=== PATIENT | male | born 1930 | race American Indian/Alaskan Native ===

== ENCOUNTER 2018-07-12 13:21 | Inpatient (IN) | payer MEDICARE ==
--- NOTE | 2018-07-12 13:33 | ED PDOC ---
Arrival/HPI - General Time Seen by Provider: 07/12/18 13:22 Historian: , EMS - Critical Care Critical Care Minutes: 45 minutes - History of Present Illness Narrative History of Present Illness (Text): 07/12/18 13:32 An 88 year old male, whose past medical history includes HTN, DM, pacemaker, kidney transplant (2008), is brought into the emergency department via EMS for further evaluation of right upper extremity weakness, facial weakness, and dilated pupil. Patient was seen immediately upon arrival. As per EMS, patient's sister tried to contact him via telephone, and he did not answer. They stated that the patient's sister went to see the patient at his house and he was not acting like himself. She states that the patient was last seen normal yesterday at around 4 PM after a pacemaker appointment at the [facility]. HPI/ROS limited due to acuity of patient's condition. Time/Duration: Prior to Arrival Symptom Onset: Sudden Symptom Course: Unchanged Activities at Onset: Rest, Light Context: Home Past Medical History - Provider Review Nursing Documentation Reviewed: Yes - Infectious Disease Hx of Infectious Diseases: None - Cardiac Hx Hypertension: Yes - Renal Hx Renal Failure: Yes (R KIDNEY TRANSPLANT) - Gastrointestinal Hx Diverticulitis: Yes - Psychiatric Hx Depression: No Hx Emotional Abuse: No Hx Physical Abuse: No Hx Substance Use: No - Anesthesia Hx Anesthesia: Yes Hx Anesthesia Reactions: No - Suicidal Assessment Feels Threatened In Home Enviroment: No Family/Social History - Physician Review Nursing Documentation Reviewed: Yes Family/Social History: No Known Family HX Smoking Status: Unknown If Ever Smoked Hx Alcohol Use: No Hx Substance Use: No Hx Substance Use Treatment: No Allergies/Home Meds Allergies/Adverse Reactions: Allergies No Known Allergies Allergy (Verified 09/16/15 14:27) Home Medications: Home Meds Medication Instructions Recorded Confirmed Allopurinol 100 mg PO DAILY 12/05/13 09/16/15 Amlodipine Besylate 5 mg PO DAILY 12/05/13 09/16/15 Aspirin [Aspirin Chewable] 81 mg PO DAILY 12/05/13 09/16/15 Gabapentin 400 mg PO BID 12/05/13 09/16/15 Insulin Human (NPH)/Regular 55 units SC BID 12/05/13 09/16/15 [Novolin 70/30 (70/30 units/ml) 10 ml] Latanoprost 0.005% Opht [Xalatan 1 drp OP HS 12/05/13 09/16/15 Opht] Levothyroxine Sodium 0.112 mg PO DAILY 12/05/13 09/16/15 Mycophenolate Sodium [Myfortic] 360 mg PO BID 12/05/13 09/16/15 Simvastatin 40 mg PO DAILY 12/05/13 09/16/15 Tacrolimus [Prograf] 4 mg PO BID 12/05/13 09/16/15 risperiDONE [RisperDAL Tab] 1 mg PO HS 12/05/13 09/16/15 Review of Systems - Physician Review All systems were reviewed & negative as marked: Yes - Review of Systems Systems not reviewed;Unavailable: Acuity of Condition Physical Exam Temperature: Afebrile Blood Pressure: Normal Pulse: Regular Respiratory Rate: Normal - Systems Exam Head: Present: Atraumatic, Normocephalic Pupils: Present: Other (R eye Fixed and dilated at 6mm. L eye PupilRound reactive to light.) Extroacular Muscles: Present: EOMI Conjunctiva: Present: Normal Mouth: Present: Moist Mucous Membranes Neck: Present: Normal Range of Motion. No: Meningeal Signs, MIDLINE TENDERNESS Respiratory/Chest: Present: Clear to Auscultation, Good Air Exchange Cardiovascular: Present: Regular Rate and Rhythm Abdomen: Present: Normal Bowel Sounds. No: Tenderness, Distention, Rebound Back: Present: Normal Inspection Upper Extremity: Present: NORMAL PULSES, Other (RUE 1/5 strength) Lower Extremity: Present: NORMAL PULSES, Other (LUE 4/5 strength) Neurological: Present: Other (GCS 10, protecting airway. Normal speech per family bedside. ) Skin: Present: Warm, Dry, Normal Color. No: Rashes Medical Decision Making ED Course and Treatment: Impression: An 88 year old is brought into the emergency department for further evaluation of right upper extremity and facial weakness, and dilated pupil. Last seen normal 1600 yesterday. Outside TPA window. Code stroke given unequal pupils, Dilated on R as well as RUE weakness. No signs of trauma. Plan: -- Head CT -- EKG -- Chest X-ray -- Labs -- Urinalysis -- IV Fluids -- Reassess and disposition Prior Visits: Notes and results from previous visits were reviewed. Progress Notes: 07/12/18 13:21: Code stroke called. 07/12/18 13:49: Received call from Dr. Rosas (Radiologist) stating Head CT is negative for hemorrhage or acutely visible ischemic stroke EKG: Ordered, reviewed, and independently interpreted the EKG. Rate : 77 Rhythm : V- paced Interpretation : No STEMI Comparison: Largely unchanged from EKG on 09/15/15 PROCEDURE: CT HEAD WITHOUT CONTRAST. Dictator : Twin Vergara MD Report Date : 07/12/2018 13:50:40 IMPRESSION: No evidence of acute infarct. No intracranial hemorrhage. Age- appropriate involutional changes. The findings in this examination were discussed by telephone with Dr. Deutsch at 1:49 p.m. on 07/12/2018. 07/12/18 14:06: Case discussed in detail with Dr. Jade who recommends CTA. 07/12/18 13:57: On re-evaluation, patient complains of abdominal pain and diffuse weakness for which A/P CT was ordered. Labs so far unremarkable. Chest X-ray Dictator : Twin Vergara MD Report Date : 07/12/2018 14:47:01 IMPRESSION: No active disease. 07/12/18 15:16 Pt was also noted to have improved RUE strength, 3/5 RUE. Notes that he routinely does not use his R eye due to previous injury in the . Notes it is always dilated. TIA likely given improvement pending swallow eval for TIA for plavix appreciate consult Dr. Woods: Endorsed pending CTA and CT abdomen. We are to admit to her service. Add on ETOH ordered. - Critical Care Critical Care Minutes: 45 minutes - Lab Interpretations I have reviewed the lab results: Yes - EKG Interpretation Interpreted by ED Physician: Yes Type: 12 lead EKG NIHSS Scale (Bronson) Time Performed: 14:09 - How Severe is the Stoke Baseline Level of Consciousness: 1=Drowsy LOC to Questions: 0=Both comments correct LOC to commands: 0=Obeys both correctly Best Gaze: 0=Normal Visual: 0=No visual loss Facial: 3=Complete unilateral paralysis Motor Arm - Left: 1=Drift noted before 10 sec Motor Arm - Right: 2=Falls before 10 sec Motor Leg - Left: 2=Falls before 5 sec Motor Leg - Right: 2=Falls before 5 sec Limb Ataxia: 0=Absent Sensory: 0=Normal Best Language: 0=No aphasia Dysarthia: 0=Normal articulation Extinction & Inattention (Neglect): 0=Normal, no object Score: 11 Risk Level: Mod Stroke Risk - Scribe Statement The provider has reviewed the documentation as recorded by the Scribe Minnie Blanca Provider Scribe Attestation: All medical record entries made by the Scribe were at my direction and personally dictated by me. I have reviewed the chart and agree that the record accurately reflects my personal performance of the history, physical exam, me dical decision making, and the department course for this patient. I have also personally directed, reviewed, and agree with the discharge instructions and disposition. Disposition/Present on Arrival - Present on Arrival Any Indicators Present on Arrival: No History of DVT/PE: No History of Uncontrolled Diabetes: No Urinary Catheter: No History Surgical Site Infection Following: None - Disposition Have Diagnosis and Disposition been Completed?: Yes Diagnosis: TIA (transient ischemic attack) Disposition Time: 15:20 Condition: FAIR Referrals: Yue Aldrich, [Primary Care Provider] - Follow up with primary
[2018-07-12] MEDS ORDERED: Sodium Chloride 0.9% 1,000 ML IV SCH (13:45)
[2018-07-12 13:49] VITALS: BMI 30.9
--- NOTE | 2018-07-12 13:54 | CT ---
Date of service: 07/12/2018 PROCEDURE: CT HEAD WITHOUT CONTRAST. HISTORY: Code Stroke COMPARISON: None available. TECHNIQUE: Axial computed tomography images were obtained through the head/brain without intravenous contrast. Radiation dose: Total exam DLP = 985.86 mGy-cm. This CT exam was performed using one or more of the following dose reduction techniques: Automated exposure control, adjustment of the mA and/or kV according to patient size, and/or use of iterative reconstruction technique. FINDINGS: HEMORRHAGE: No intracranial hemorrhage. BRAIN: No mass effect or edema. Mild diffuse age-appropriate cerebral atrophy. Moderate patchy and confluent periventricular and deep/subcortical white matter lucency consistent with microvascular white matter ischemic change. VENTRICLES: Unremarkable. No hydrocephalus. CALVARIUM: Unremarkable. PARANASAL SINUSES: Unremarkable as visualized. No significant inflammatory changes. MASTOID AIR CELLS: Unremarkable as visualized. No inflammatory changes. OTHER FINDINGS: None. IMPRESSION: No evidence of acute infarct. No intracranial hemorrhage. Age-appropriate involutional changes. The findings in this examination were discussed by telephone with Dr. Deutsch at 1:49 p.m. on 07/12/2018.
[2018-07-12 13:56] LABS: BASO # 0.01 K/mm3 (0.0-2.0); BASO % 0.1 % (0.0-3.0); EOS # 0.1 (0.0-0.7); EOS % 0.8 % (1.5-5.0); GRAN # 6.42 (1.4-6.5); GRAN % 71.1 % (50.0-68.0); HEMOGLOBIN 15.5 g/dL (14.0-18.0); LYMPH # 2.2 (1.2-3.4); LYMPH % 23.9 % (22.0-35.0); MEAN CELL VOLUME 85.2 fl (80.0-105.0); MEAN CORPUSCULAR HEMOGLOBIN 28.6 pg (25.0-35.0); MEAN CORPUSCULAR HGB CONC 33.5 g/dl (31.0-37.0); MEAN PLATELET VOLUME 11.2 fl (7.0-11.0); MONO # 0.4 (0.1-0.6); MONO % 4.1 % (1.0-6.0); RBC 5.42 10^6/uL (3.5-6.1); RED CELL DISTRIBUTION WIDTH 14.8 % (11.5-14.5)
[2018-07-12 13:59] LABS: ALB/GLOB RATIO 1.3 (1.1-1.8); ALBUMIN 4.6 g/dL (3.0-4.8); ALT/SGPT 348 U/L (7-56); AST/SGOT 217 U/L (17-59); BLOOD UREA NITROGEN 18 mg/dL (7-21); CALCIUM 10.7 mg/dL (8.4-10.5); GFR NON-AFRICAN AMERICAN > 60; HDL CHOLESTEROL 30 mg/dL (29-60)
[2018-07-12 14:00] LABS: INR 0.96
[2018-07-12 14:10] LABS: LDL CHOLESTEROL 80 mg/dL (0-129); TROPONIN I 0.03 ng/mL
[2018-07-12 14:32] LABS: B-TYPE NATRIURETIC PEPTIDE 442 pg/mL (0-450)
--- NOTE | 2018-07-12 14:50 | RAD ---
Date of service: 07/12/2018 HISTORY: Code Stroke COMPARISON: 09/15/2015 FINDINGS: LUNGS: No active pulmonary disease. PLEURA: No significant pleural effusion identified, no pneumothorax apparent. CARDIOVASCULAR: Normal heart size. Permanent pacemaker. Spinal stimulator noted. OSSEOUS STRUCTURES: No significant abnormalities. VISUALIZED UPPER ABDOMEN: Normal. OTHER FINDINGS: None. IMPRESSION: No active disease.
[2018-07-12 15:51] LABS: ARTERIAL BLOOD GAS HCO3 22.3 mmol/L (21-28); ARTERIAL BLOOD GAS O2 SAT 98.1 % (95-98); ARTERIAL BLOOD GAS PCO2 36 mm/Hg (35-45); ARTERIAL BLOOD GAS TCO2 23.4 mmol.L (22-28)
--- NOTE | 2018-07-12 18:02 | CT ---
Date of service: 07/12/2018 PROCEDURE: CT Abdomen and Pelvis without intravenous contrast HISTORY: abd pain COMPARISON: None. TECHNIQUE: Without contrast.. Contrast dose: 0 Radiation dose: Total exam DLP = 1448.49 mGy-cm. This CT exam was performed using one or more of the following dose reduction techniques: Automated exposure control, adjustment of the mA and/or kV according to patient size, and/or use of iterative reconstruction technique. FINDINGS: LOWER THORAX: Left lower lobe infiltrate. Possible pneumonia. Cardiomegaly. Permanent pacemaker. Spinal stimulator. LIVER: Unremarkable. No gross lesion or ductal dilatation. GALLBLADDER AND BILE DUCTS: Cholelithiasis. No mural thickening or pericholecystic fluid. PANCREAS: Unremarkable. No gross lesion or ductal dilatation. SPLEEN: Unremarkable. ADRENALS: Unremarkable. No mass. KIDNEYS AND URETERS: Severely atrophic [place] kidneys. Multiple small low-density masses in left kidney likely cysts. Transplant kidney in right iliac fossa. No mass, calculus or hydronephrosis. VASCULATURE: Unremarkable. No aortic aneurysm. BOWEL: Unremarkable. No obstruction. No gross mural thickening. APPENDIX: Not identified. No secondary findings to suggest acute appendicitis. PERITONEUM: Unremarkable. No free fluid. No free air. LYMPH NODES: Unremarkable. No enlarged lymph nodes. BLADDER: Unremarkable. REPRODUCTIVE: Mild prostate enlargement BONES: No acute fracture. OTHER FINDINGS: None. IMPRESSION: Atrophic kidneys with right iliac fossa renal transplant. Left lower lobe infiltrate, possible pneumonia. Cholelithiasis without evidence of cholecystitis. Additional minor findings as above.
[2018-07-12 18:28] LABS: BENZODIAZEPINES, UR NEGATIVE (NEGATIVE); OPIATES, UR NEGATIVE (NEGATIVE)
[2018-07-12 18:29] LABS: BARBITURATES, UR NEGATIVE (NEGATIVE)
[2018-07-12 18:46] LABS: PHENCYCLIDINE, UR NEGATIVE (NEGATIVE)
[2018-07-12] MEDS: Dextrose 5%/0.45% NS 1,000 ML IV SCH (19:01)
[2018-07-12] MEDS: Levalbuterol 0.63 MG/3 ML Inhal Soln UD IH SCH (20:14)
[2018-07-12] MEDS ORDERED: Pneumococcal 23-Valent Vaccine IM ONE (20:28)
[2018-07-12] MEDS ORDERED: Influenza Vaccine 60 mcg/0.5 mL SYR (4YR UP) IM ONE (20:28)
[2018-07-12] MEDS: Nitroglycerin 2% Ointment Foilpak UD TOP SCH (23:57)
[2018-07-13] MEDS: Dextrose 5%/0.45% NS 1,000 ML IV SCH ×3 (03:30→20:45)
[2018-07-13] MEDS: Metoprolol 1 mg/ml Inj IVP PRN ×2 (05:59)
[2018-07-13] MEDS: Nitroglycerin 2% Ointment Foilpak UD TOP SCH ×4 (06:05→23:21)
[2018-07-13 06:52] LABS: HEMOGLOBIN 14.2 g/dL (14.0-18.0); MEAN CELL VOLUME 84.5 fl (80.0-105.0); MEAN CORPUSCULAR HEMOGLOBIN 27.5 pg (25.0-35.0); MEAN CORPUSCULAR HGB CONC 32.6 g/dl (31.0-37.0); MEAN PLATELET VOLUME 11.3 fl (7.0-11.0); RBC 5.16 10^6/uL (3.5-6.1); RED CELL DISTRIBUTION WIDTH 14.7 % (11.5-14.5); WHITE BLOOD COUNT 8.9 10^3/ul (4.5-11.0)
[2018-07-13 07:40] LABS: ALB/GLOB RATIO 1.3 (1.1-1.8); ALBUMIN 3.7 g/dL (3.0-4.8); ALT/SGPT 266 U/L (7-56); AST/SGOT 120 U/L (17-59); BLOOD UREA NITROGEN 12 mg/dL (7-21); CALCIUM 10.2 mg/dL (8.4-10.5); GFR NON-AFRICAN AMERICAN > 60
[2018-07-13] MEDS: Levalbuterol 0.63 MG/3 ML Inhal Soln UD IH SCH ×3 (08:30→19:45)
[2018-07-13] MEDS: Insulin Lispro (humaLOG) MEDIUM Coverage SC SCH ×3 (09:58→19:33)
[2018-07-13] MEDS: cefTRIAXone 1 gm 1 GM/100 ML BAG IVPB SCH (11:13)
--- NOTE | 2018-07-13 12:39 | CP.PCM.CON ---
History of Present Illness - History of Present Illness History of Present Illness: Neurology Consultation Note: Mr. Zazueta is an 88-year-old man with a past medical history of HTN, DM, pacemaker, kidney transplant (2008), who was brought in to the ED after his sister found him with abnormal behavior, slurred speech, right facial droop and right arm weakness. He was last known well the day before he was brought in. He was not a candidate for IV tPA due to being outside the 4.5 hour time window. Non-contrast CT scan of the head did not show any acute findings. CTA of the head/neck did not show any focal stenosis or large vessel occlusion. When I saw the patient, he was pleasant and conversant, but complained of generalized weakness and pain in his cervical region and lower back. He admitted to having a foot drop on the left and states that he has trouble with moving his upper extremities chronically. Review of Systems - Constitutional Constitutional: absent: As Per HPI, Anorexia, Chills, Daytime Sleepiness, Excessive Sweating, Fatigue, Fever, Frequent Falls, Headache, Increased Appetite, Lethargy, Malaise, Night Sweats, Snoring, Sleep Apnea, Weight Gain, Weight Loss, Weakness, Other - EENT Eyes: absent: As Per HPI, Blind Spots, Blurred Vision, Change in Vision, Decreased Night Vision, Diplopia, Discharge, Dry Eye, Exophthalmos, Floaters, Irritation, Itchy Eyes, Loss of Peripheral Vision, Pain, Photophobia, Requires Corrective Lenses, Sees Flashes, Spots in Vision, Tunnel Vision, Other Visual Disturbances, Loss of Vision, Other Ears: absent: As Per HPI, Decreased Hearing, Ear Discharge, Ear Pain, Tinnitus, Abnormal Hearing, Disequilibrium, Dizziness, Other Nose/Mouth/Throat: absent: As Per HPI, Epistaxis, Nasal Congestion, Nasal Discharge, Nasal Obstruction, Nasal Trauma, Nose Pain, Post Nasal Drip, Sinus Pain, Sinus Pressure, Bleeding Gums, Change in Voice, Dental Pain, Dry Mouth, Dysphagia, Halitosis, Hoarsness, Lip Swelling, Mouth Lesions, Mouth Pain, Odynophagia, Sore Throat, Throat Swelling, Tongue Swelling, Facial Pain, Neck Pain, Neck Mass, Other - Cardiovascular Cardiovascular: absent: As Per HPI, Acrocyanosis, Chest Pain, Chest Pain at Rest, Chest Pain with Activity, Claudication, Diaphoresis, Dyspnea, Dyspnea on Exertion, Edema, Irregular Heart Rhythm, Pain Radiating to Arm/Neck/Jaw, Leg Edema, Leg Ulcers, Lightheadedness, Orthopnea, Palpitations, Paroxysmal Noctu rnal Dyspnea, Pedal Edema, Radiating Pain, Rapid Heart Rate, Slow Heart Rate, Syncope, Other - Respiratory Respiratory: absent: As Per HPI, Cough, Dyspnea, Hemoptysis, Dyspnea on Exertion, Wheezing, Snoring, Stridor, Pain on Inspiration, Chest Congestion, Excessive Mucous Production, Change in Mucous Color, Pain with Coughing, Other - Gastrointestinal Gastrointestinal: absent: As Per HPI, Abdominal Pain, Belching, Bloating, Change in Bowel Habits, Change in Stool Character, Coffee Ground Emesis, Constipation, Cramping, Diarrhea, Dyspepsia, Dysphagia, Early Satiety, Excessive Flatus, Fecal Incontinence, Heartburn, Hematemesis, Hematochezia, Loose Stools, Melena, Nausea, Odynophagia, Temesmus, Vomiting, Other - Genitourinary Genitourinary: absent: As Per HPI, Change in Urinary Stream, Difficulty Urinating, Dysuria, Flank Pain, Hematuria, Pyuria, Nocturia, Urinary Incontine nce, Urinary Frequency, Urinary Hesitance, Urinary Urgency, Voiding Freq/Small Amts, Freq UTI, Hx Renal/Bladder Calculi, Hx /Renal Surgery, Bladder Distension, Other - Musculoskeletal Musculoskeletal: As Per HPI - Integumentary Integumentary: absent: As Per HPI, Acne, Alopecia, Bleeding Lesions, Change in Hair, Change in Nails, Change in Pigmentation, Changing Lesions, Dry Skin, Erythema, Furuncle, Hirsutism, Lesions, New Lesions, Non-Healing Lesions, Photosensitivity, Pruritus, Rash, Skin Pain, Skin Ulcer, Sores, Striae, Swelling, Unusual Bruising, Wounds, Jaundice, Other - Neurological Neurological: As Per HPI - Psychiatric Psychiatric: absent: As Per HPI, Abnormal Sleep Pattern, Anhedonia, Anxiety, Auditory Hallucinations, Behavioral Changes, Change in Appetite, Change in Libido, Confusion, Depression, Difficulty Concentrating, Hallucinations, Homicidal Ideation, Hopelessness, Irritability, Memory Loss, Mood Swings, Panic Attacks, Paranoia, Suicidal Ideation, Visual Hallucinations, Tactile Hallucinations, Other - Endocrine Endocrine: absent: As Per HPI, Change in Body Appearance, Change in Libido, Cold Intolorance, Deepening of Voice, Excessive Sweating, Fatigue, Flushing, Heat Int olorance, Increase in Ring/Shoe/Hat Size, Palpitations, Polydipsia, Polyphagia, Polyuria, Other - Hematologic/Lymphatic Hematologic: absent: As Per HPI, Easy Bleeding, Easy Bruising, Lymphadenopathy, Other Past Patient History - Infectious Disease Hx of Infectious Diseases: None - Past Social History Smoking Status: Former Smoker - CARDIAC Hx Cardiac Disorders: Yes Hx Hypercholesterolemia: Yes Hx Hypertension: Yes - PULMONARY Hx Respiratory Disorders: Yes (USED TO SMOKE 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 PER PT HAD INJURY IN THE [employer].) - RENAL Hx Chronic Kidney Disease: Yes Hx Renal Failure: Yes (R KIDNEY TRANSPLANT) - ENDOCRINE/METABOLIC Hx Endocrine Disorders: No - HEMATOLOGICAL/ONCOLOGICAL Hx Blood Disorders: No - INTEGUMENTARY Hx Dermatological Problems: Yes Other/Comment: 07-12-18 SCARRING TO MID LOWER BACK,MID LOWER ABDOMINAL AREA,RIGHT BIG TOE AND 2ND TOE PARTIAL AMPUTATION. - MUSCULOSKELETAL/RHEUMATOLOGICAL Hx Musculoskeletal Disorders: Yes Hx Falls: Yes Hx Unsteady Gait: Yes - GASTROINTESTINAL Hx Gastrointestinal Disorders: Yes Hx Diverticulitis: Yes - GENITOURINARY/GYNECOLOGICAL Hx Genitourinary Disorders: No - PSYCHIATRIC Hx Psychophysiologic Disorder: No Hx Depression: No Hx Emotional Abuse: No Hx Physical Abuse: No Hx Substance Use: No - SURGICAL HISTORY Hx Surgeries: Yes (EXPLORATORY LAP,KIDNEY TRANSPLANT RIGHT,) Hx Appendectomy: Yes Other/Comment: pacemaker - ANESTHESIA Hx Anesthesia: Yes Hx Anesthesia Reactions: No Meds Allergies/Adverse Reactions: Allergies Allergy/AdvReac Type Severity Reaction Status Date / Time No Known Allergies Allergy Verified 07/12/18 17:17 - Medications Medications: Current Medications Dextrose/Sodium Chloride (Dextrose 5%/0.45% Ns 1000 Ml) 1,000 mls @ 80 mls/hr IV .[id number] [facility] Last Admin: 07/13/18 03:30 Dose: 80 mls/hr Ceftriaxone Sodium (Rocephin 1 Gram Ivpb) 1 gm in 100 mls @ 100 mls/hr IVPB DAILY [facility]; Protocol Last Admin: 07/13/18 11:13 Dose: 100 mls/hr Insulin Human Lispro (Humalog Med) 0 units SC WM [facility]MA; Protocol Last Admin: 07/13/18 12:35 Dose: Not Given Levalbuterol HCl (Xopenex) 0.63 mg IH TIDRESP [facility] Last Admin: 07/13/18 08:30 Dose: Not Given Metoprolol Tartrate (Lopressor) 5 mg IVP Q6 PRN PRN Reason: Systolic Blood Pressure Last Admin: 07/13/18 05:59 Dose: 5 mg Nitroglycerin (Nitro-Bid 2% Oint) 1 ea TOP Q6 [facility] Last Admin: 07/13/18 11:14 Dose: 1 ea Physical Exam - Constitutional Appears: Chronically Ill - Head Exam Head Exam: ATRAUMATIC, NORMAL INSPECTION, NORMOCEPHALIC - Eye Exam Eye Exam: EOMI, Normal appearance, PERRL Additional comments: Right eye has previous injury and does not move properly and does not have vision in it. - ENT Exam ENT Exam: Mucous Membranes Moist, Normal Exam - Neck Exam Neck exam: Positive for: Tenderness - Respiratory Exam Respiratory Exam: Clear to Auscultation Bilateral, NORMAL BREATHING PATTERN - Cardiovascular Exam Cardiovascular Exam: REGULAR RHYTHM, +S1, +S2 - GI/Abdominal Exam GI & Abdominal Exam: Normal Bowel Sounds, Soft. absent: Tenderness - Rectal Exam Rectal Exam: Deferred - Extremities Exam Extremities exam: Positive for: joint swelling, pedal edema, tenderness - Back Exam Back exam: paraspinal tenderness - Neurological Exam Neurological exam: Abnormal Gait, Alert, CN II-XII Intact, Oriented x3 Additional comments: Generalized weakness. Speech is fluent and not dysarthric. Limited mobility of right upper extremity due to pain. Chronic left foot drop. Pain limiting movements. Reflexes are normal. Plantar responses are equivocal. NIHSS = 4 Results - Vital Signs Recent Vital Signs: Last Vital Signs Temp 97.8 F 07/13/18 06:00 Pulse 77 07/13/18 06:00 Resp 20 07/13/18 06:00 BP 171/95 H 07/13/18 06:00 Pulse Ox 97 07/13/18 06:00 - Labs Result Diagrams: 07/13/18 06:00 07/13/18 06:00 Labs: Laboratory Results - last 24 hr 10/07/12/18 07/12/18 13:27 13:27 13:27 WBC 9.0 D RBC 5.42 Hgb 15.5 Hct 46.2 MCV 85.2 MCH 28.6 MCHC 33.5 RDW 14.8 H Plt Count 148 MPV 11.2 H Gran % 71.1 H Lymph % (Auto) 23.9 Irion % (Auto) 4.1 Eos % (Auto) 0.8 L Baso % (Auto) 0.1 Gran # 6.42 Lymph # (Auto) 2.2 Irion # (Auto) 0.4 Eos # (Auto) 0.1 Baso # (Auto) 0.01 PT 11.0 INR 0.96 APTT 31.0 pCO2 pO2 HCO3 ABG pH ABG Total CO2 ABG O2 Saturation ABG Base Excess ABG Potassium Glucose Lactate FiO2 Sodium 139 Potassium 4.7 Chloride 103 Carbon Dioxide 27 Anion Gap 14 BUN 18 Creatinine 0.7 L Est GFR ( Amer) > 60 Est GFR (Non-Af Amer) > 60 POC Glucose (mg/dL) Random Glucose 145 H Hemoglobin A1c Calcium 10.7 H Total Bilirubin 0.5 AST 217 H ALT 348 H Alkaline Phosphatase 118 Total Creatine Kinase Troponin I 0.03 NT-Pro-B Natriuret Pep Total Protein 8.2 Albumin 4.6 Globulin 3.5 Albumin/Globulin Ratio 1.3 Triglycerides 170 H Cholesterol 158 LDL Cholesterol Direct 80 HDL Cholesterol 30 Lipase TSH 3rd Generation Arterial Blood Potassium Urine Opiates Screen Urine Methadone Screen Ur Barbiturates Screen Ur Phencyclidine Scrn Ur Amphetamines Screen U Benzodiazepines Scrn U Oth Cocaine Metabols U Cannabinoids Screen Alcohol, Quantitative Blood Type Blood Type Confirm Antibody Screen Antibody Identification BBK History Checked 07/12/18 07/12/18 07/12/18 13:27 13:27 13:37 WBC RBC Hgb Hct MCV MCH MCHC RDW Plt Count MPV Gran % Lymph % (Auto) Irion % (Auto) Eos % (Auto) Baso % (Auto) Gran # Lymph # (Auto) Irion # (Auto) Eos # (Auto) Baso # (Auto) PT INR APTT pCO2 pO2 HCO3 ABG pH ABG Total CO2 ABG O2 Saturation ABG Base Excess ABG Potassium Glucose Lactate FiO2 Sodium Potassium Chloride Carbon Dioxide Anion Gap BUN Creatinine Est GFR ( Amer) Est GFR (Non-Af Amer) POC Glucose (mg/dL) Random Glucose Hemoglobin A1c 7.7 H Calcium Total Bilirubin AST ALT Alkaline Phosphatase Total Creatine Kinase 154 Troponin I NT-Pro-B Natriuret Pep 442 Total Protein Albumin Globulin Albumin/Globulin Ratio Triglycerides Cholesterol LDL Cholesterol Direct HDL Cholesterol Lipase TSH 3rd Generation 0.31 L Arterial Blood Potassium Urine Opiates Screen Urine Methadone Screen Ur Barbiturates Screen Ur Phencyclidine Scrn Ur Amphetamines Screen U Benzodiazepines Scrn U Oth Cocaine Metabols U Cannabinoids Screen Alcohol, Quantitative Blood Type Blood Type Confirm Antibody Screen Antibody Identification BBK History Checked 07/12/18 07/12/18 07/12/18 14:00 15:47 17:00 WBC RBC Hgb Hct MCV MCH MCHC RDW Plt Count MPV Gran % Lymph % (Auto) Irion % (Auto) Eos % (Auto) Baso % (Auto) Gran # Lymph # (Auto) Irion # (Auto) Eos # (Auto) Baso # (Auto) PT INR APTT pCO2 36 pO2 82.0 HCO3 22.3 ABG pH 7.40 ABG Total CO2 23.4 ABG O2 Saturation 98.1 H ABG Base Excess -2.0 ABG Potassium 4.0 Glucose 107 Lactate 1.0 FiO2 21.0 Sodium 137.0 Potassium Chloride 109.0 H Carbon Dioxide Anion Gap BUN Creatinine Est GFR ( Amer) Est GFR (Non-Af Amer) POC Glucose (mg/dL) Random Glucose Hemoglobin A1c Calcium Total Bilirubin AST ALT Alkaline Phosphatase Total Creatine Kinase Troponin I NT-Pro-B Natriuret Pep Total Protein Albumin Globulin Albumin/Globulin Ratio Triglycerides Cholesterol LDL Cholesterol Direct HDL Cholesterol Lipase 82 TSH 3rd Generation Arterial Blood Potassium 4.0 Urine Opiates Screen Urine Methadone Screen Ur Barbiturates Screen Ur Phencyclidine Scrn Ur Amphetamines Screen U Benzodiazepines Scrn U Oth Cocaine Metabols U Cannabinoids Screen Alcohol, Quantitative Blood Type B NEGATIVE Blood Type Confirm Antibody Screen Positive Antibody Identification Anti D BBK History Checked No verified bt 07/12/18 07/12/18 07/12/18 17:00 17:00 17:10 WBC RBC Hgb Hct MCV MCH MCHC RDW Plt Count MPV Gran % Lymph % (Auto) Irion % (Auto) Eos % (Auto) Baso % (Auto) Gran # Lymph # (Auto) Irion # (Auto) Eos # (Auto) Baso # (Auto) PT INR APTT pCO2 pO2 HCO3 ABG pH ABG Total CO2 ABG O2 Saturation ABG Base Excess ABG Potassium Glucose Lactate FiO2 Sodium Potassium Chloride Carbon Dioxide Anion Gap BUN Creatinine Est GFR ( Amer) Est GFR (Non-Af Amer) POC Glucose (mg/dL) Random Glucose Hemoglobin A1c Calcium Total Bilirubin AST ALT Alkaline Phosphatase Total Creatine Kinase Troponin I NT-Pro-B Natriuret Pep Total Protein Albumin Globulin Albumin/Globulin Ratio Triglycerides Cholesterol LDL Cholesterol Direct HDL Cholesterol Lipase TSH 3rd Generation Arterial Blood Potassium Urine Opiates Screen Negative Urine Methadone Screen Negative Ur Barbiturates Screen Negative Ur Phencyclidine Scrn Negative Ur Amphetamines Screen Negative U Benzodiazepines Scrn Negative U Oth Cocaine Metabols Negative U Cannabinoids Screen Negative Alcohol, Quantitative < 10 Blood Type Blood Type Confirm B NEGATIVE Antibody Screen Antibody Identification BBK History Checked 07/12/18 07/13/18 07/13/18 21:06 06:00 06:00 WBC 8.9 RBC 5.16 Hgb 14.2 Hct 43.6 MCV 84.5 MCH 27.5 MCHC 32.6 RDW 14.7 H Plt Count 148 MPV 11.3 H Gran % Lymph % (Auto) Irion % (Auto) Eos % (Auto) Baso % (Auto) Gran # Lymph # (Auto) Irion # (Auto) Eos # (Auto) Baso # (Auto) PT INR APTT pCO2 pO2 HCO3 ABG pH ABG Total CO2 ABG O2 Saturation ABG Base Excess ABG Potassium Glucose Lactate FiO2 Sodium 138 Potassium 4.7 Chloride 108 H Carbon Dioxide 22 Anion Gap 13 BUN 12 Creatinine 0.7 L Est GFR ( Amer) > 60 Est GFR (Non-Af Amer) > 60 POC Glucose (mg/dL) 128 H Random Glucose 147 H Hemoglobin A1c Calcium 10.2 Total Bilirubin 0.7 AST 120 H D ALT 266 H Alkaline Phosphatase 121 Total Creatine Kinase Troponin I NT-Pro-B Natriuret Pep Total Protein 6.5 Albumin 3.7 Globulin 2.8 Albumin/Globulin Ratio 1.3 Triglycerides Cholesterol LDL Cholesterol Direct HDL Cholesterol Lipase TSH 3rd Generation Arterial Blood Potassium Urine Opiates Screen Urine Methadone Screen Ur Barbiturates Screen Ur Phencyclidine Scrn Ur Amphetamines Screen U Benzodiazepines Scrn U Oth Cocaine Metabols U Cannabinoids Screen Alcohol, Quantitative Blood Type Blood Type Confirm Antibody Screen Antibody Identification BBK History Checked 07/13/18 07:13 WBC RBC Hgb Hct MCV MCH MCHC RDW Plt Count MPV Gran % Lymph % (Auto) Irion % (Auto) Eos % (Auto) Baso % (Auto) Gran # Lymph # (Auto) Irion # (Auto) Eos # (Auto) Baso # (Auto) PT INR APTT pCO2 pO2 HCO3 ABG pH ABG Total CO2 ABG O2 Saturation ABG Base Excess ABG Potassium Glucose Lactate FiO2 Sodium Potassium Chloride Carbon Dioxide Anion Gap BUN Creatinine Est GFR ( Amer) Est GFR (Non-Af Amer) POC Glucose (mg/dL) 151 H Random Glucose Hemoglobin A1c Calcium Total Bilirubin AST ALT Alkaline Phosphatase Total Creatine Kinase Troponin I NT-Pro-B Natriuret Pep Total Protein Albumin Globulin Albumin/Globulin Ratio Triglycerides Cholesterol LDL Cholesterol Direct HDL Cholesterol Lipase TSH 3rd Generation Arterial Blood Potassium Urine Opiates Screen Urine Methadone Screen Ur Barbiturates Screen Ur Phencyclidine Scrn Ur Amphetamines Screen U Benzodiazepines Scrn U Oth Cocaine Metabols U Cannabinoids Screen Alcohol, Quantitative Blood Type Blood Type Confirm Antibody Screen Antibody Identification BBK History Checked Assessment & Plan (1) TIA (transient ischemic attack) Assessment and Plan: Currently, the patient is at his baseline. He has chronic pain and some limitations of movement due to radiculopathy and spinal disease. I recommend the following for work up: 1. Telemetry 2. MRI brain without contrast if possible (pacemaker may not be compatible) 3. Echocardiogram with bubble study 4. EEG awake and drowsy for 30 minutes. 5. Check hemoglobin A-1 C, lipid panel, ESR, CRP, B12, folate, TSH, vitamin D levels, urinalysis and infectious work-up. 6. Aspirin 81 mg daily 7. Q 4 hour neuro-checks. 8. Normalize BP 9. IV fluids normal saline at 100 mL per hour. Please do not hesitate to call back with any new developments, data updates or questions. Thank you for the opportunity to participate in the care of this patient. Status: Acute
--- NOTE | 2018-07-13 15:28 | CARD ---
APPROVED REPORT Date of service: 07/12/2018 EKG Measurement Heart [id number] [place] 302P [id number] <Conclusion> AV sequential or dual chamber electronic pacemaker
--- NOTE | 2018-07-13 22:37 | HP ---
DATE OF EXAM: 07/12/2018 HISTORY OF PRESENT ILLNESS: This 88-year-old male was examined in the [facility] ER, bed #8 on the afternoon of Saturday,07/12/2018 and this case was reviewed in detail with emergency room physician, Dr. Tay Deutsch. This is a 88-year-old male who was brought to the [facility] via EMS support. He has a longstanding history of chronic hypertension, diabetes mellitus, chronic permanent pacemaker placement and is status post a kidney transplant in 2008. He was sent to Emergency Room by family for further evaluation of upper extremity weakness, facial weakness, and change in mental status. Upon arrival to the Emergency Room, the patient underwent a significant diagnostic workup including chest x-ray, EKG, head CT, and abdominopelvic CT. All of these were reviewed with Dr. Deutsch and his clinical presentation appears consistent with a possible transient ischemic attack, since there were no changes on head CT consistent with infarct or hemorrhage. When I examined the patient at the bedside, he was responsive to questioning but appeared slow in his responses and had a garbled speech. On review of his medical record, he has a longstanding history of kidney transplant in 2008, hyperlipidemia, hypothyroidism, glaucoma, psychosis, allergic rhinitis, and gout. OUTPATIENT MEDICATION: List was reviewed and includes Risperdal, Ultram, Prograf, simvastatin, Myfortic, Synthroid, Xalatan glaucoma eyedrops, Novolin 70/30,gabapentin, Flonase, Tessalon Perles, Zithromax, Ecotrin, benazepril, and Zyloprim. ALLERGIES: THE PATIENT DENIES ANY ALLERGIES TO MEDICATION. SOCIAL HISTORY: He states he is a nondrinker, nonsmoker, non IV drug misuser. PAST SURGICAL HISTORY: He states he has had surgery on his spine for herniated disks, knee surgery, appendectomy, kidney transplant surgery, and apparently has a spinal stimulator as noted on x-ray. REVIEW OF SYSTEMS: CONSTITUTIONAL: He denied fever or chills. HEAD: Denied headache or seizure. EYES: Has chronic glaucoma. EARS: No hearing loss. THROAT: Apparently has swallowing difficulty at present. NECK: No stiffness. CARDIAC: Chronic hypertension. He denied knowledge of myocardial infarction. PULMONARY: Chronic obstructive pulmonary disease. GASTROINTESTINAL: Gastroesophageal reflux disease. GENITOURINARY: Status post kidney transplant. VASCULAR: No claudication. PSYCHOLOGIC: Apparent psychosis. NEUROLOGIC: Denied knowledge of stroke. ENDOCRINOLOGIC: Insulin-dependent diabetes mellitus and hyperlipidemia. MUSCULOSKELETAL: Chronic degenerative and spinal arthritis. PHYSICAL EXAMINATION: VITAL SIGNS: At the time of my interview, showed a temperature of 98.6, respirations 18, pulse 75, and blood pressure 148/84 with a pulse ox of 97% room air. HEENT: Head was normocephalic, atraumatic. Eyes: No icterus. Ears: Clear. Throat: Noninjected. NECK: Supple. HEART: Regular S1, S2. LUNGS: Clear. ABDOMEN: Soft. EXTREMITIES: No edema. SKIN: Without rash. NEUROLOGIC: He had a muffled speech pattern. He had decreased motor strength, 3/5, both right upper and left upper extremities. VASCULAR: Legs warm to touch. PSYCHOLOGIC: Able to answer questions. SKIN: Without rash. Code stroke was called in the Emergency Room. Workup was consistent with TIA. He had a swallowing evaluation. He was advised no solid foods at present. LABORATORY DATA: Showed white count 9000, hemoglobin 15.5, hematocrit 46.2, platelets 148,000. PT/INR 0.96, PTT 31. Sodium 139, K 4.7, chloride 103, bicarb 27, BUN 18, creatinine 0.7, random blood sugar 145, calcium 10.7. Bilirubin 0.5, AST 217, ALT 348, alk phos 118. CPK normal at 154. Troponin 0.03. Cholesterol 158, triglycerides 170, LDL 80, and HDL 30. TSH 0.31, lipase 82. Drug screen negative. Alcohol level less than 10. Chest x-ray was reviewed. It showed no active disease. No significant pleural effusion was noted. There was no pneumothorax. A permanent pacemaker was noted. Spinal stimulator was noted. Head CT was reviewed. No intracranial hemorrhage was identified. There was no mass effect or edema. Mild diffuse age appropriate cerebral atrophy was noted, moderate patchy and confluent periventricular and deep subcortical white matter lucencies were noted consistent with white matter ischemic changes. His ventricle showed no hydrocephalous and there was no evidence of an acute infarct. No intracranial hemorrhage and this was interpreted by Dr. Twin Juarez from Radiology. An abdominopelvic CT was reviewed. This was completed with no p.o. or IV contrast. Of note, a left lower lobe infiltrate with possible pneumonia findings were noted as well as his permanent pacemaker placement and spinal stimulator. His liver was unremarkable with no gross lesion or ductal dilatation and the gallbladder was consistent with cholelithiasis with no mural thickening or pericholecystic fluid. Pancreas was unremarkable. Adrenal showed no mass. His [place] kidney showed severe atrophy with a left kidney cyst and his transplant kidney was noted to be in the right iliac fossa. There was no evidence of calculus or hydronephrosis. Mild prostatic enlargement was noted. IMPRESSION AND PLAN: An 88-year-old male with change in mental status, rule out transient ischemic attack, status post kidney transplant in 2008, now with possible left lower lobe pneumonia, chronic hypertension, hypothyroidism, glaucoma, insulin-dependent diabetes mellitus, peripheral neuropathy, sinusitis, degenerative arthritis, history of gout and elevated liver function testing of unclear etiology. Since the patient has not passed his swallowing examination, the plan will be to give him D5 0.45 saline at 80 mL per hour while continuing Humalog medium insulin coverage before breakfast meals and at bedtime. He continues on Lopressor 5 mg IV every 6 hours p.r.n. accelerated hypertension if his systolic blood pressure should be greater than 160 or his diastolic blood pressure should be greater than 100. He will be given nitroglycerin ointment 1 inch to chest wall every 6 hours scheduled and I have ordered Rocephin 1 g IV every 24 hours and Xopenex inhalational therapy t.i.d. He is scheduled for a repeat swallow evaluation in the a.m. I have requested an acute hepatitis panel; hemoglobin A1c stat; blood, urine and sputum cultures as well as a hepatic ultrasound. He is scheduled for a CT angiogram of his neck and head. Nasal O2 has been ordered. He remains n.p.o. pending swallowing evaluation approval and remains on a high fall risk protocol with physical and occupational therapy ordered for reconditioning and gait training and a consultation with Dr. Abiodun Paiz from Neurology has been requested as well. Based on his clinical progress, additional diagnostic testing and workup will be entertained. Greater than 75 minutes was spent in the care, review, discussion of this patient with emergency room physician, Dr. Tay Deutsch, and outlining of orders and discussion of these orders with his cardiac unit nurse. All questions were answered. Arlette Woods MD [facility] # [id number] DAGOBERTO
--- NOTE | 2018-07-14 00:31 | CON ---
DATE: 07/12/2018 HISTORY OF PRESENT ILLNESS: This is an 88-year-old male with past medical history of hypertension, diabetes, status post pacemaker, and a kidney transplant in 2008 brought here to the hospital with slurred speech, right facial droop and right arm weakness and also had abnormal behavior. CAT scan of the head was done, which did not show any acute findings, was seen by Dr. Jade for stroke and CTA of the head and neck was done, did not show any focal stenosis. PAST MEDICAL HISTORY: Hypertension, diabetes, and status post pacemaker. ALLERGIES: No known drug allergies. MEDICATIONS: The patient is on metoprolol and nitroglycerine. PHYSICAL EXAMINATION VITAL SIGNS: Blood pressure 171/95. HEENT: Normocephalic, atraumatic. NECK: Supple. NEUROLOGIC: Awake, alert, and oriented. No aphasia. Cranial nerves II through XII were tested. Pupils reactive. EOM intact. Visual barreto full. No facial asymmetry. Tongue midline. Motor examination: Spontaneous movement of the extremities noted. Deep tendon reflexes are 1+. Mild weakness, only right upper extremity. Both plantars are downgoing. Sensory appears intact. Cerebellar, gait deferred. IMPRESSION: An 88-year-old male with past medical history of hypertension, diabetes, status post permanent pacemaker, status post kidney transplant came with transient ischemic attack. CAT scan of the head was negative and CTA is negative too. Workup in progress. Continue present management. We will follow up. Martinez Paiz MD
--- NOTE | 2018-07-14 00:37 | PN ---
DATE: 07/13/2018 SUBJECTIVE: This 88-year-old male was examined on the cardiac kenny of the [facility] on Saturday morning, 07/13/2018. This case was reviewed in detail with nurse Lyric Nguyen, The patient had a repeat speech therapy evaluation by Shelia Portillo, which demonstrated mild oral and possible esophageal dysphagia with risk for aspiration. Contributing factors include the poor setting of his dentures, possible reflux and neck and throat discomfort after swallowing. The patient will have advanced bite-size dysphagia level III diet with extra gravy and thin liquids along with aspiration precautions. This was reviewed with his nurse Lyric Nguyen as well. The patient remains intermittently confused. He was admitted with concerns of TIA and is aware that it is Saturday, but is confused to month and date. He does know his date and the street on which he lives. 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 HEAD: Normocephalic, atraumatic. Eyes: No icterus. Ears: Clear. Throat: Noninjected. NECK: Supple. HEART: Was regular S1, S2. No pathological rubs, murmurs or gallops. LUNGS: Clear. ABDOMEN: Soft. EXTREMITIES: No edema. SKIN: Without rash. NEUROLOGICAL: Lethargic, confused, able to move all extremities, but weak and deconditioned. VASCULAR: Legs warm to touch. PSYCHOLOGICAL: Metabolic encephalopathy. LABORATORY DATA: White count 8900, hemoglobin 14.2, hematocrit 43.6, platelets 148,000. PT/INR 0.96, PTT 31. Sodium 138, K 4.7, chloride 108, bicarb 22, BUN 12, creatinine 0.7, random blood sugar 147, calcium 10.2, bilirubin 0.7, AST 120, previously 217, ALT 266, previously 348. Lipase 82. Urine toxicology screen negative. Alcohol level less than 10. Abdominal pelvic CT was consistent with cholelithiasis, left lower lobe infiltrate, possible pneumonia, permanent pacemaker, spinal stimulator, atrophic [place] kidney, transplant kidney noted in the right iliac fossa without hydronephrosis or calculus, prostatic hypertrophy. Head CT was reviewed. It showed no evidence of intracranial hemorrhage or stroke. IMPRESSION: An 88-year-old male with metabolic encephalopathy, altered mental status, rule out transient ischemic attack, elevated liver function testing of unclear etiology with strong alcohol ingestion history of wine. Hepatitis panel pending with left lower lobe pneumonia noted on CAT scanning for which the patient is awaiting blood, urine and sputum culture results with comorbidities of psychosis, renal transplant, hyperlipidemia, hypothyroidism, glaucoma, insulin-dependent diabetes mellitus, peripheral neuropathy, sinusitis, gout, chronic hypertension. PLAN: As discussed with his nurse will be to outline his dysphagia diet while maintaining aspiration precautions, fall precautions and neuro checks every shift. He is awaiting neurological evaluation by Dr. Abiodun Paiz. He will now will be started on aspirin 81 mg p.o. daily and continued on D5 0.45 saline at 80 mL/hour until his p.o. intake is established as firm. He continues on Flonase nasal spray daily, medium Humalog insulin coverage before meals and at bedtime, Lipitor 40 mg p.o. at dinner time, Lopressor 5 mg IV every 6 hours p.r.n. accelerated hypertension if his systolic blood pressure should be greater than 160 or diastolic blood pressure should be greater than 100. Neurontin 400 mg p.o. b.i.d., nitroglycerin 1 inch to chest wall every 6 hours, Prograf 4 mg p.o. every 12 hours, Risperdal 1 mg p.o. at bedtime, Rocephin 1 g IV every 24 hours, Synthroid 112 mcg p.o. daily, Xopenex inhalational therapy t.i.d. and Zyloprim 100 mg p.o. daily. He is scheduled for hepatic ultrasound because of elevated LFTs to rule out fatty liver versus cirrhosis. A CT angiogram of neck and head is pending. He is ordered to have 2 liters nasal O2 p.r.n. He is ordered to have a heart-healthy soft bland dysphagia diet, physical therapy has been ordered and based on clinical progress, additional diagnostic testing will be entertained. All of the above was reviewed with his nurse Lyric Nguyen and greater than 35 minutes was spent in the care management, review of labs, orders, x-rays and outlining of medication and placement of orders for this patient today. All questions were answered. Arlette Woods MD MTDD
[2018-07-14] MEDS: Nitroglycerin 2% Ointment Foilpak UD TOP SCH ×3 (05:16→17:38)
[2018-07-14] MEDS: Levothyroxine 112 MCG TAB PO SCH (05:16)
[2018-07-14] MEDS: Dextrose 5%/0.45% NS 1,000 ML IV SCH ×2 (05:36→17:51)
[2018-07-14 07:55] LABS: HEPATITIS B SURFACE AG Negative (NEGATIVE)
[2018-07-14 08:01] LABS: HEPATITIS A IGM NEGATIVE (NEGATIVE); HEPATITIS B CORE AB NEGATIVE (NEGATIVE)
[2018-07-14 08:12] LABS: HEPATITIS C ANTIBODY NEGATIVE (NEGATIVE)
[2018-07-14] MEDS: Levalbuterol 0.63 MG/3 ML Inhal Soln UD IH SCH ×3 (08:28→21:03)
[2018-07-14] MEDS: Insulin Lispro (humaLOG) MEDIUM Coverage SC SCH ×3 (08:38→17:38)
--- NOTE | 2018-07-14 09:19 | CP.PCM.PN ---
Subjective - Date & Time of Evaluation Date of Evaluation: 07/14/18 Time of Evaluation: 07:00 - Subjective Subjective: Full Consult dictated. His pacemaker was interrogated at the bedside this AM. See full report. Relatively high A and V thresholds are detected. This appears to be chronic with high A, V output settings to compensate for this. The pacemaker is functioning normally with these settings. No changes were made by me. He should continue pacemaker f/u at the [facility]. I reviewed the telemetry rhythm strips and I did not see any definite non- captures. Enrique Mcpherosn MD Objective - Vital Signs/Intake and Output Vital Signs (last 24 hours): Temp Pulse Resp BP Pulse Ox 98.7 F 70 20 136/78 97 07/14/18 06:00 07/14/18 06:00 07/14/18 06:00 07/14/18 06:00 07/13/18 06:00 Intake and Output: 07/14/18 07/14/18 06:59 18:59 Intake Total 1720 Output Total 2300 Balance -580 - Medications Medications: Current Medications Allopurinol (Zyloprim) 100 mg PO DAILY [facility] Last Admin: 07/13/18 17:59 Dose: 100 mg Aspirin (Aspirin Chewable) 81 mg PO DAILY [facility] Last Admin: 07/13/18 14:35 Dose: 81 mg Atorvastatin Calcium (Lipitor) 40 mg PO DIN [facility] Last Admin: 07/13/18 17:59 Dose: 40 mg Fluticasone Propionate (Flonase) 1 actuation NS DAILY [facility] Gabapentin (Neurontin) 400 mg PO BID [facility]; Protocol Last Admin: 07/13/18 17:59 Dose: 400 mg Dextrose/Sodium Chloride (Dextrose 5%/0.45% Ns 1000 Ml) 1,000 mls @ 80 mls/hr IV .[id number] [facility] Last Admin: 07/14/18 05:36 Dose: 80 mls/hr Ceftriaxone Sodium (Rocephin 1 Gram Ivpb) 1 gm in 100 mls @ 100 mls/hr IVPB DAILY [facility]; Protocol Last Admin: 07/13/18 11:13 Dose: 100 mls/hr Insulin Human Lispro (Humalog Med) 0 units SC WM [facility]; Protocol Last Admin: 07/14/18 08:38 Dose: 1 units Levalbuterol HCl (Xopenex) 0.63 mg IH TIDRESP [facility] Last Admin: 07/14/18 08:28 Dose: Not Given Levothyroxine Sodium (Synthroid) 112 mcg PO 0600 [facility] Last Admin: 07/14/18 05:16 Dose: 112 mcg Metoprolol Tartrate (Lopressor) 5 mg IVP Q6 PRN PRN Reason: Systolic Blood Pressure Last Admin: 07/13/18 05:59 Dose: 5 mg Nitroglycerin (Nitro-Bid 2% Oint) 1 ea TOP Q6 [facility] Last Admin: 07/14/18 05:16 Dose: 1 ea Risperidone (Risperdal Tab) 1 mg PO HS [facility]; Protocol Last Admin: 07/13/18 21:43 Dose: 1 mg Tacrolimus (Prograf Cap) 4 mg PO Q12 [facility] Last Admin: 07/13/18 21:44 Dose: 4 mg - Labs Labs: 07/13/18 06:00 07/13/18 06:00 PT 11.0 SECONDS (9.4-12.5) 07/12/18 13:27 INR 0.96 07/12/18 13:27 APTT 31.0 Seconds (25.1-36.5) 07/12/18 13:27
[2018-07-14] MEDS: cefTRIAXone 1 gm 1 GM/100 ML BAG IVPB SCH (09:27)
--- NOTE | 2018-07-14 09:28 | CON ---
DATE: 07/14/2018 REASON FOR CONSULTATION: Rule out pacer malfunction. HISTORY OF PRESENT ILLNESS: This is an 88-year-old man admitted on the 07/12/2018 with altered mental status, facial droop, right upper extremity weakness, dilated pupil, thought to have a TIA, initially evaluated in the Emergency Room. t-PA not given, admitted to telemetry. On telemetry, there has been some question of possible pacemaker non-capture. A cardiology consultation was requested. There is no chest pain, shortness of breath, orthopnea, PND, syncope, presyncope, lightheadedness, dizziness, vertigo, palpitation, fever, chills, cough, sputum production, hemoptysis, abdominal pain, nausea, vomiting, diarrhea, constipation, or melena. PAST MEDICAL HISTORY: Notable for a permanent pacemaker. He is a limited historian. It was implanted in the [facility]. Subsequently, he had two pacemaker revisions. He says that it has been checked regularly at the [facility]. He has a history of hypertension, diabetes, renal transplantation, and gout. He is found to have abnormal LFTs, foot drop, chronically dilated pupil. He drinks wine regularly. There is no history of rheumatic fever, myocardial infarction, angina, or congestive heart failure. MEDICATIONS: At the time of admission, include allopurinol, Norvasc, aspirin, gabapentin, insulin, Xalatan, levothyroxine, Myfortic, simvastatin, Prograf, and Risperdal. SOCIAL HISTORY: He lives at home. He is ambulatory but limited. He does not smoke. He does drink wine regularly. There are no medications recorded. FAMILY HISTORY: Noncontributory. REVIEW OF SYSTEMS: A 10-point review of systems is unremarkable but limited because of cognitive dysfunction. PHYSICAL EXAMINATION: GENERAL: He is a well-developed male lying in bed on telemetry, in no acute distress. VITAL SIGNS: Notable for predominantly AV pacing but intermittent intrinsic rhythm and intermittent PVCs are noted. He is afebrile. Blood pressure 136/78, respirations 20, O2 sat 97%-98% on room air. HEENT: Reveals no neck vein distention, thyromegaly, or carotid bruit. Mucous membranes moist. Conjunctivae pink. NECK: Supple. LUNGS: Lung barreto clear. HEART: Revealed normal first and second heart sounds. There is a soft systolic murmur along the left sternal border and at the cardiac apex. PMI is not palpable. ABDOMEN: Soft. Bowel sounds present. No mass, organomegaly, tenderness, rebound, guarding, CVA tenderness, or palpable abdominal aortic aneurysm. EXTREMITIES: Revealed no cyanosis, clubbing, or edema. NEUROLOGIC: He was awake and alert with slightly slow slurred speech. He is not completely oriented. PSYCHIATRIC: Normal as to mood and affect. SKIN: Warm and dry. No rash or cellulitis. LABORATORY DATA AND IMAGING: Chest x-ray revealed no active disease. CT scan of the head did not disclose an acute infarct or hemorrhage. CT of the abdomen and pelvis revealed atrophic kidneys, left lower lobe infiltrate, possible pneumonia and cholelithiasis, etc. See full report. A CTA of the head and neck is not yet interpreted. An abdominal ultrasound is not yet interpreted. The EKG demonstrated AV sequential pacing. CBC is unremarkable. PT, INR, PTT unremarkable. Blood gases are noted. Electrolytes: BUN, creatinine, blood sugar unremarkable. A1c 7.7, calcium 10.7. LFTs are elevated. Troponin 0.03. CK 154. BNP 442. Total cholesterol 158, LDL 80, triglycerides 170, HDL 30, lipase normal. TSH low at 0.31. IMPRESSION: Stephan Zazueta is an 88-year-old man admitted with altered mental status, possible transient ischemic attack, possible stroke, possible metabolic encephalopathy with a permanent pacemaker. On telemetry, there is question of failure to capture, but the rhythm strips I saw demonstrated normal pacemaker function. He reports recent pacemaker followup, which was unremarkable at the [facility]. He has swallowing abnormalities and chronic neurologic abnormalities including foot drop, dilated pupil, and cognitive dysfunction. At this time, he is undergoing a neurologic evaluation. I will arrange to interrogate his pacemaker. He will continue on telemetry. An echocardiogram has been ordered. His blood pressure is being controlled. His blood sugar is being monitored. He is getting IV fluids. He is getting Synthroid, Rocephin, Risperdal, Prograf, nitro paste, gabapentin, IV metoprolol p.r.n., Lipitor, insulin, and aspirin. We will monitor I's and O's. Check stool for occult blood. He could be out of bed to chair as tolerated. He could ambulate with assistance as needed. He will have neuro signs and frequent vital signs. I will follow along with you. I will make additional recommendations based on his clinical course. Enrique Mcpherson MD DAGOBERTO
[2018-07-14] MEDS: Fluticasone Nasal 50 mcg/Spray NS SCH (09:32)
--- NOTE | 2018-07-14 10:46 | US ---
Date of service: 07/13/2018 HISTORY: elevated lfts r/o fatty liver COMPARISON: None. TECHNIQUE: Sonographic evaluation of the right upper quadrant of the abdomen. FINDINGS: LIVER: Measures 15.8 cm in length. Diffusely increased echogenicity of the liver parenchyma. Consistent with fatty infiltration. Smooth contour. No mass. No biliary dilatation. Normal hepatopetal portal venous flow demonstrated GALLBLADDER: Cholelithiasis. No mural thickening. No pericholecystic fluid. Negative sonographic Banuelos sign. COMMON BILE DUCT: Measures 6 mm. No stones. No dilatation. PANCREAS: Unremarkable as visualized. No mass. No ductal dilatation. RIGHT KIDNEY: Measures 11.3 cm in length. Normal echogenicity. No calculus, mass, or hydronephrosis. AORTA: No aneurysmal dilatation. IVC: Unremarkable. OTHER FINDINGS: None . IMPRESSION: Cholelithiasis without sonographic evidence of cholecystitis. Mild fatty infiltration of the liver.
--- NOTE | 2018-07-14 10:55 | CT ---
Date of service: 07/12/2018 PROCEDURE: CT Angiography of the neck with contrast HISTORY: nihss 6 COMPARISON: None. TECHNIQUE: Contiguous axial images of the neck were obtained from the level of the skull-base to the superior mediastinum in the arteriographic phase of enhancement. Coronal and sagittal reformats or also generated. IV contrast dose: 150 cc of Omni 350 Radiation Dose - DLP: 632 mGy-cm This CT exam was performed using one or more of the following dose reduction techniques: Automated exposure control, adjustment of the mA and/or kV according to patient size, and/or use of iterative reconstruction technique. FINDINGS: RIGHT CAROTID ARTERIES: Common Carotid Artery: Normal. Carotid Bifurcation: Mild atherosclerotic changes with no significant stenosis Internal Carotid Artery:Normal. External Carotid Artery (proximal branches): Normal. LEFT CAROTID ARTERIES: Common Carotid Artery: Normal. Carotid Bifurcation: Mild atherosclerotic changes with no significant stenosis Internal Carotid Artery:Normal. External Carotid Artery (proximal branches): Normal. VERTEBRAL ARTERIES: Right Vertebral Artery: Normal. Left Vertebral Artery: Normal. OTHER FINDINGS: Mild dilatation of the thoracic aorta at the level of the aortic arch measuring 3.8 cm. Minimal calcification of the aorta and mural thickening IMPRESSION: Mild atherosclerotic changes in the carotid bifurcations bilaterally with no significant stenosis CT Angiography of the Brain. HISTORY: nihss 6 COMPARISON: None available. TECHNIQUE: CT angiography of the intracranial arteries was performed. Coronal and sagittal maximum intensity projection reformated images were generated. This CT exam was performed using one or more of the following dose reduction techniques: Automated exposure control, adjustment of the mA and/or kV according to patient size, and/or use of iterative reconstruction technique. FINDINGS: INTERNAL CEREBRAL ARTERIES: Unremarkable. The skull base, petrous, cavernous and supraclinoid segments are bilaterally widely patent. ANTERIOR CEREBRAL ARTERIES: Unremarkable. A1 and A2 segments are widely patent. Smaller distal branches unremarkable, as visualized. MIDDLE CEREBRAL ARTERIES: Unremarkable. M1 and M2 segments are widely patent. Perisylvian branches grossly symmetric. POSTERIOR CIRCULATION: Basilar Artery: Unremarkable. Distal Vertebral Arteries: Unremarkable. Posterior Cerebral Arteries: Unremarkable. Posterior Inferior Cerebellar Arteries: Unremarkable. ANEURYSM/ VASCULAR MALFORMATIONS: None. OTHER FINDINGS: The report concurs with the preliminary [facility] report IMPRESSION: Unremarkable CT Angiography of the Brain.
[2018-07-14 12:44] LABS: FOLATE > 20.0 ng/mL
--- NOTE | 2018-07-14 13:33 | PN ---
DATE: 07/14/2018 NEUROLOGY FOLLOWUP CHIEF COMPLAINT: Follow up for transient right-sided weakness and right arm weakness and slurred speech. SUBJECTIVE: The patient is seen and examined at the bedside. The patient is doing much better. No further slurred speech. He is able to move his extremities. CT angio of the head and neck is unremarkable for anything acute. There is some mild chronic atherosclerotic disease. The patient is being treated for possible left lower lobe pneumonia. He is mildly deconditioned. He is on antibiotics. The patient is on gabapentin for neuropathic relief. PAST MEDICAL HISTORY: History of longstanding kidney transplant in 2008, hyperlipidemia, hypothyroidism, glaucoma, psychosis, allergic rhinitis, gout. REVIEW OF SYSTEMS: Fourteen-point review of systems is negative except for the HPI. ALLERGIES: NO KNOWN DRUG ALLERGIES. MEDICATIONS: Reviewed by the nurses' reconciliation sheet. SOCIAL HISTORY: No illicit drug use, smoking or EtOH abuse. FAMILY HISTORY: Noncontributory. LABORATORY DATA: Today's blood sugar is 263. PHYSICAL EXAMINATION: VITAL SIGNS: Temperature 98.7, pulse rate of 70, blood pressure 136/78, respiratory rate of 18, oxygen saturation 99% by room air. GENERAL: The patient is sitting up in bed, in no acute distress. HEENT: Atraumatic, normocephalic. PERRLA. Extraocular muscles intact. NECK: Supple. No JVD, no adenopathy noted. LUNGS: Clear to auscultation. No adventitious sounds. HEART: S1, S2. Normal rate and rhythm. No murmurs, rubs or gallops. ABDOMEN: Soft, nontender and nondistended. Bowel sounds are present. EXTREMITIES: No clubbing. No cyanosis. Peripheral pulses 2+ felt bilaterally. NEUROLOGIC: The patient is alert and oriented to person, place, month and year. Recall after 5 minutes is 0/3. Poor attention span. Slow thought process. Cranial nerves II through XII intact. Motor exam: Moves all extremities equally, but is limited on the right upper extremity due to pain at times most likely cervicogenic in nature. Sensory exam: Decreased light touch and pinprick up to the calves bilaterally. Decreased vibration of the toes. DTRs are 2+ throughout, 1 at both ankles. Has a chronic left foot drop. Plantar responses are equivocal. Coordination: [id number] intact. No dysmetria noted. Gait is deferred for now. IMPRESSION: This is an 88-year-old man. Past medical history of chronic degenerative and spinal arthritis, kidney transplant in 2009, chronic hypertension, hypothyroidism, insulin-dependent diabetes mellitus, peripheral neuropathy, on gabapentin, history of gout, who presented for transient right facial weakness and right facial droop and slurred speech. Currently, symptoms are back to baseline. Has some right upper extremity pain, which is chronic in nature, likely secondary to chronic cervical radiculopathy superimposed on degenerative arthritis. He has a pacemaker, therefore myocardial infarction is not possible. His CT angiography of the head and neck is unremarkable for anything acute. At this time, I think symptoms are secondary to transient ischemic attack by hypertensive episode. Recommend, 1. Aspirin 81 mg and Lipitor 40 mg for stroke prevention. 2. Monitor electrolytes and correct accordingly. 3. Keep his blood sugars between 140-180. 4. Physical Therapy/Occupational Therapy evaluation and some physical therapy for cervicogenic pain. Once again thank you for this followup. Abiodun Paiz MD
[2018-07-15] MEDS: Nitroglycerin 2% Ointment Foilpak UD TOP SCH ×2 (01:05→06:03)
[2018-07-15] MEDS: Dextrose 5%/0.45% NS 1,000 ML IV SCH (06:03)
[2018-07-15] MEDS: Levothyroxine 112 MCG TAB PO SCH (06:04)
[2018-07-15 06:14] VITALS: O2SAT 98
--- NOTE | 2018-07-15 07:55 | CP.PCM.PN ---
Subjective - Date & Time of Evaluation Date of Evaluation: 07/15/18 Time of Evaluation: 07:00 - Subjective Subjective: Stable on 2R. No CP or SOB. V/S noted. RSR/AV Paced PE: Lungs: clear Cor.: S1S2 Abd.: soft Ext.: no edemma Neuro.: alert I/O= 1940/835 Labs noted. BC X2 NG at 48 hrs. Urine C+S: + GPC Objective - Vital Signs/Intake and Output Vital Signs (last 24 hours): Temp Pulse Resp BP Pulse Ox 98.6 F 61 19 122/81 98 07/15/18 06:00 07/15/18 06:00 07/15/18 06:00 07/15/18 06:00 07/15/18 06:00 Intake and Output: 07/15/18 07/15/18 06:59 18:59 Intake Total 960 Output Total 835 Balance 125 - Medications Medications: Current Medications Allopurinol (Zyloprim) 100 mg PO DAILY [facility] Last Admin: 07/14/18 09:27 Dose: 100 mg Aspirin (Aspirin Chewable) 81 mg PO DAILY [facility] Last Admin: 07/14/18 09:27 Dose: 81 mg Atorvastatin Calcium (Lipitor) 40 mg PO DIN [facility] Last Admin: 07/14/18 17:39 Dose: 40 mg Fluticasone Propionate (Flonase) 1 actuation NS DAILY [facility] Last Admin: 07/14/18 09:32 Dose: 1 spr Gabapentin (Neurontin) 400 mg PO BID [facility]; Protocol Last Admin: 07/14/18 17:38 Dose: 400 mg Dextrose/Sodium Chloride (Dextrose 5%/0.45% Ns 1000 Ml) 1,000 mls @ 80 mls/hr IV .[id number] [facility] Last Admin: 07/15/18 06:03 Dose: 80 mls/hr Ceftriaxone Sodium (Rocephin 1 Gram Ivpb) 1 gm in 100 mls @ 100 mls/hr IVPB DAILY [facility]; Protocol Stop: 07/17/18 10:59 Last Admin: 07/14/18 09:27 Dose: 100 mls/hr Insulin Human Lispro (Humalog Med) 0 units SC WM [facility]; Protocol Last Admin: 07/14/18 17:38 Dose: 3 units Levalbuterol HCl (Xopenex) 0.63 mg IH TIDRESP [facility] Last Admin: 07/14/18 21:03 Dose: Not Given Levothyroxine Sodium (Synthroid) 112 mcg PO 0600 [facility] Last Admin: 07/15/18 06:04 Dose: 112 mcg Metoprolol Tartrate (Lopressor) 5 mg IVP Q6 PRN PRN Reason: Systolic Blood Pressure Last Admin: 07/13/18 05:59 Dose: 5 mg Nitroglycerin (Nitro-Bid 2% Oint) 1 ea TOP Q6 [facility] Last Admin: 07/15/18 06:03 Dose: 1 ea Risperidone (Risperdal Tab) 1 mg PO HS [facility]; Protocol Last Admin: 07/14/18 21:43 Dose: 1 mg Tacrolimus (Prograf Cap) 4 mg PO Q12 [facility] Last Admin: 07/14/18 21:44 Dose: 4 mg - Labs Labs: 07/13/18 06:00 07/13/18 06:00 PT 11.0 SECONDS (9.4-12.5) 07/12/18 13:27 INR 0.96 07/12/18 13:27 APTT 31.0 Seconds (25.1-36.5) 07/12/18 13:27 Assessment and Plan - Assessment and Plan (Free Text) Assessment: AMS, R/O TIA/CVA Foot drop/Dilated pupil/Cognitive Dysfunction PPM, normal function with high thresholds HBP Diabetes Renal Transplant Gout Abn. LFTs Plan: As per Neuro., Dr. Woods. [facility] Check echo when done D/C IVF Oob as Dionna.
[2018-07-15] MEDS: Levalbuterol 0.63 MG/3 ML Inhal Soln UD IH SCH ×2 (08:00→13:50)
[2018-07-15] MEDS: Insulin Lispro (humaLOG) MEDIUM Coverage SC SCH ×3 (08:05→16:41)
--- NOTE | 2018-07-15 08:13 | PN ---
DATE: 07/14/2018 SUBJECTIVE: This 88-year-old male was examined at his bedside on the cardiac kenny on the morning of 07/14/2018. His case was reviewed with his nurse, Lyric Nguyen, registered nurse. The patient was seen in consultation by Dr. Martinez Paiz from Neurology and at present, is awaiting a sleep and awake EEG as well as resulting of his head and neck CTA study. He did have an abdominal ultrasound because of elevated liver function testing, which did confirm both gallstones and fatty liver. The patient is improving in mentation, having been admitted with clinical TIA and at present, denies any fever, chills, chest pain, or shortness of breath and remains in a normal sinus rhythm on the property man. PHYSICAL EXAMINATION: VITAL SIGNS: His temperature is 98.6, respirations 19, pulse 61, and blood pressure 122/81 with a pulse ox of 98% on room air. HEENT: Head normocephalic, atraumatic. Eyes: No icterus. Ears: Clear. Throat: Noninjected. NECK: Supple. HEART: Regular S1, S2. No pathological rubs, murmurs, or gallops. LUNGS: Have decreased breath sounds at the left base with occasional rhonchi that improve with coughing. ABDOMEN: Obese, nontender without palpable organomegaly. No rebound. No guarding. No tenderness. 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 EXTREMITIES: No clubbing, cyanosis, or edema. NEUROLOGIC: Mild right arm weakness. Slurred speech improved, mentation improved. VASCULAR: Legs warm to touch. SKIN: Without rash or ulceration. LABORATORY DATA: White count 8900, hemoglobin 14.2, hematocrit 43.6, platelets 148,000. Sodium 138, K 4.7, chloride 108, bicarb 22, BUN 12, creatinine 0.7, random blood sugar was 165. AST 120, ALT 266, bilirubin 0.7, and alk phos 121. Head and neck CTA was reviewed with Dr. Bebo Burger which shows no evidence of carotid artery stenosis. EKG was reviewed which showed functioning AV sequential dual-chamber electronic pacemaker. IMPRESSION: An 88-year-old male admitted with transient ischemic attack and evidence of left lower lobe pneumonia with comorbidities of chronic hypertension, obesity, kidney transplant, insulin-dependent diabetes mellitus, chronic hypertension, hyperlipidemia, peripheral neuropathy, history of psychosis, on chronic Risperdal, hypothyroidism, chronic obstructive pulmonary disease, gout, degenerative arthritis, and deconditioning, now with improving mentation and appetite. PLAN: At present, is to continue Ecotrin, Flonase, Humalog insulin, Lipitor, Lopressor, Neurontin, Nitro-Bid to chest wall, Prograf, Risperdal, Rocephin, Synthroid, Xopenex, and Zyloprim as well as Myfortic. Based on clinical progress and the resulting of his echocardiography and neurology studies, additional diagnostic testing and workup will be entertained. The patient will probably need transitional care rehab for reconditioning, gait training, and completion of parenteral antibiotics and pulmonary toiletry for newly noted left lower lobe pneumonia on recent x-ray. All of the above was discussed with the patient and nursing. All questions were answered. rAlette Woods MD MTDD
[2018-07-15] MEDS: cefTRIAXone 1 gm 1 GM/100 ML BAG IVPB SCH (09:07)
[2018-07-15] MEDS: Fluticasone Nasal 50 mcg/Spray NS SCH (09:08)
[2018-07-15] MEDS ORDERED: TraMADol/Apap 37.5/325 mg Tab PO PRN (10:47)
[2018-07-15 13:45] VITALS: BP 153/90; RESP 18; TEMP 98.4
[2018-07-15 14:03] VITALS: PULSE 74
[2018-07-15] MEDS ORDERED: Insulin Lispro (humaLOG) MIX 75/25(10 ml) SC SCH (16:30)
--- NOTE | 2018-07-16 09:21 | CARD ---
APPROVED REPORT Date of service: 07/15/2018 EXAM: Two-dimensional and M-mode echocardiogram with Doppler and color Doppler. INDICATION CVA/TIA 2D DIMENSIONS Left Atrium (2D)4.0 (1.6-4.0cm)IVSd1.4 (0.7-1.1cm) LVDd4.8 (3.9-5.9cm)PWd1.1 (0.7-1.1cm) LVDs3.6 (2.5-4.0cm)FS (%) 25.0 % LVEF (%)49.6 (>50%) M-Mode DIMENSIONS Aortic Root3.30 (2.2-3.7cm)Aortic Cusp Exc.1.90 (1.5-2.0cm) Aortic Valve AoV Peak Mljnqekg405.0cm/sAoV VTI41.4cmAO Peak GR.24mmHg LVOT Peak Uicgppue216.0cm/sLVOT VTI23.00cmAO Mean GR.11mmHg Mitral Valve E/A ratio0.0 TDI E/Lateral E'0.0E/Medial E'0.0 Tricuspid Valve TR Peak [id number]/sRAP [id number] Peak Gr.36mmHg [id number] LEFT VENTRICLE The left ventricle is normal size. There is mild concentric left ventricular hypertrophy. The systolic function is mildly impaired. There is mild hypokinesis of the basal inferoseptal wall. RIGHT VENTRICLE The right ventricle is normal size. The right ventricular systolic function is normal. ATRIA The left atrium is borderline dilated. The right atrium size is normal. Injection of bubbles does not document an interatrial shunt. AORTIC VALVE The aortic valve is mildly to moderately calcified. There is mild aortic regurgitation. There is mild valvular aortic stenosis. MITRAL VALVE The mitral valve is mildly thickened. Mitral regurgitation is trace. TRICUSPID VALVE The tricuspid valve is normal in structure. There is mild to moderate tricuspid regurgitation. PULMONIC VALVE The pulmonary valve is normal in structure. GREAT VESSELS The aortic root is normal in size. The IVC is normal in size and collapses >50% with inspiration. PERICARDIAL EFFUSION There is no pleural effusion. There is no pericardial effusion. <Conclusion> Borderline LA enlargement. Normal LV size. Mildly reduced LV systolic function with basal inferoseptal hypokinesis. Mild . Mild AI. Mild to moderate TR. Negative bubble study.
--- NOTE | 2018-07-18 10:29 | DS ---
FINAL DISCHARGE DIAGNOSES: This 88-year-old male was discharged from the cardiac kenny at the [facility] on the afternoon of 07/15/2018. Discharge diagnoses were transient ischemic attack; left lower lobe pneumonia; history of kidney transplant; insulin-dependent diabetes mellitus; hyperlipidemia; chronic hypertension; peripheral neuropathy; hypothyroidism; degenerative arthritis; chronic gout; sinusitis, chronic; deconditioned. DISPOSITION Transitional Care Rehab. VENETIAN BLIND INSTALLER: Dr. Martinez Paiz from Neurology. DISCHARGE MEDICATIONS: Ecotrin 81 mg p.o. daily; Flonase to nasal passages daily; Myfortic 360 mg p.o. b.i.d.; Humalog low-insulin coverage protocol before meals meals and at bedtime; Humalog 75/25, 45 units before meals breakfast and dinner; Lipitor 40 mg at bedtime; Lopressor 5 mg IV q.6h. p.r.n. accelerated hypertension for systolic blood pressure greater than 160 or diastolic blood pressure greater than 100; Neurontin 400 mg b.i.d.; Prograf 4 mg p.o. q.12h.; Risperdal 1 mg p.o. at bedtime; Rocephin 1 g IV q.24h.; Synthroid 112 mcg p.o. daily; Ultracet one tablet p.o. q.8h. p.r.n. severe spinal arthritis; Xopenex 0.63 mg inhalational t.i.d.; and Zyloprim 100 mg p.o. daily. SUMMARY: This 88-year-old male was admitted to the [facility] with upper and lower arm and leg weakness, slurred speech, and clinical TIA. He was seen and cleared for discharge to Transitional Care Unit by Dr. Martinez Paiz from Neurology. Of note, head CT, head and neck CTA were unremarkable for any acute stroke or hemorrhage. His 2D echocardiogram was reviewed, this showed borderline left atrial enlargement, normal left ventricular size, mildly reduced left ventricular systolic function with basal inferior septal hypokinesia, mild aortic stenosis, mild aortic insufficiency, mild tricuspid regurgitation and a negative bubble study. He also had an abdominopelvic CT that revealed a left lower lobe pulmonary infiltrate plus mild prostatic enlargement, gallstones. No evidence of cholecystitis. An EKG reportedly showed normal sinus rhythm with nonspecific ST-T wave changes. The patient was also seen by Dr. Enrique Mcpherson from Cardiology, who evaluated the patient's permanent pacemaker and felt it showed normal function with high thresholds and cleared the patient for transfer to Transitional Care Rehab as well. Of note, it was thought that the patient had elevated liver function testing on admission with negative hepatitis A, B and C serology, and an abdominal ultrasound consistent with fatty liver. At the time of transfer to rehab, his white count was 8900, hemoglobin 14.2, hematocrit 43.6, platelets 148,000. Sodium 138, K of 4.7, chloride 108, bicarb 22, BUN 12, creatinine 0.7 and random blood sugar 147 with bilirubin 0.7, AST 120, ALT 266, alk phos 121. Hepatitis A, B, C serologies were negative. Urine drug screen was unremarkable and a blood alcohol level was less than 10 on admission. The patient's clinical course will be monitored on Transitional Care. He will have a followup swallow evaluation, and all of the above was reviewed in detail with the patient and nursing. All questions were answered. Arlette Woods MD
== END 2018-07-15 16:58 | DRG 69 ==
LOC: ED 13:21 → ERH 15:39 → 2RNO 18:10
PROVIDERS: ADMIT Internal Medicine; ATTEND Internal Medicine
PROC: 4B02XSZ Measurement of Cardiac Pacemaker, External Approach (ICD-10-PCS; principal; 2018-07-14)
DX: G45.9 Transient cerebral ischemic attack, unspecified (principal); J18.9 Pneumonia, unspecified organism; G93.41 Metabolic encephalopathy; Z94.0 Kidney transplant status; J44.0 Chronic obstructive pulmonary disease with (acute) lower respiratory infection; E11.42 Type 2 diabetes mellitus with diabetic polyneuropathy; E11.22 Type 2 diabetes mellitus with diabetic chronic kidney disease; I12.9 Hypertensive chronic kidney disease with stage 1 through stage 4 chronic kidney disease, or unspecified chronic kidney disease; M21.372 Foot drop, left foot; G89.29 Other chronic pain; R29.711 NIHSS score 11; E03.9 Hypothyroidism, unspecified; N18.9 Chronic kidney disease, unspecified; M10.9 Gout, unspecified; M54.12 Radiculopathy, cervical region; Z79.82 Long term (current) use of aspirin; Z87.891 Personal history of nicotine dependence; Z95.0 Presence of cardiac pacemaker; Z79.4 Long term (current) use of insulin

== ENCOUNTER 2018-07-15 17:02 | Inpatient (IN) | payer OTHER ==
[2018-07-15] MEDS ORDERED: Metoprolol 1 mg/ml Inj IVP PRN (17:06)
[2018-07-15 20:11] VITALS: BMI 31.7
[2018-07-15] MEDS: Levalbuterol 0.63 MG/3 ML Inhal Soln UD IH SCH (20:55)
[2018-07-15] MEDS: Insulin Lispro (humaLOG) LOW Coverage SC SCH (21:54)
[2018-07-16] MEDS: Levothyroxine 112 MCG TAB PO SCH (05:07)
[2018-07-16] MEDS: cefTRIAXone 1 gm 1 GM/100 ML BAG IVPB SCH (05:07)
[2018-07-16] MEDS: Insulin Lispro (humaLOG) LOW Coverage SC SCH ×4 (06:33→21:46)
[2018-07-16] MEDS: Levalbuterol 0.63 MG/3 ML Inhal Soln UD IH SCH ×3 (07:15→21:05)
[2018-07-16] MEDS ORDERED: Insulin Lispro (humaLOG) MIX 75/25(10 ml) SC SCH (07:30)
[2018-07-16] MEDS: Fluticasone Nasal 50 mcg/Spray NS SCH (09:49)
[2018-07-16] MEDS: MYFORTIC PO SCH (09:50)
[2018-07-16] MEDS: Insulin Lispro (humaLOG) MIX 75/25(10 ml) SC SCH (17:15)
[2018-07-17] MEDS: TraMADol/Apap 37.5/325 mg Tab PO PRN ×2 (04:36→20:20)
[2018-07-17] MEDS: Levothyroxine 112 MCG TAB PO SCH (05:12)
[2018-07-17] MEDS: cefTRIAXone 1 gm 1 GM/100 ML BAG IVPB SCH (05:13)
[2018-07-17 06:08] LABS: MEAN CORPUSCULAR HEMOGLOBIN 27.4 pg (25.0-35.0); MEAN CORPUSCULAR HGB CONC 32.3 g/dl (31.0-37.0); MEAN PLATELET VOLUME 11.5 fl (7.0-11.0); RBC 4.74 10^6/uL (3.5-6.1); RED CELL DISTRIBUTION WIDTH 14.5 % (11.5-14.5); WHITE BLOOD COUNT 7.9 10^3/ul (4.5-11.0)
[2018-07-17] MEDS: Insulin Lispro (humaLOG) LOW Coverage SC SCH ×4 (06:37→22:26)
[2018-07-17 07:02] LABS: BLOOD UREA NITROGEN 13 mg/dL (7-21); CALCIUM 9.7 mg/dL (8.4-10.5); GFR NON-AFRICAN AMERICAN > 60
[2018-07-17] MEDS: Levalbuterol 0.63 MG/3 ML Inhal Soln UD IH SCH ×3 (07:18→19:22)
--- NOTE | 2018-07-17 07:37 | HP ---
DATE OF EXAM: 07/16/2018 HISTORY OF PRESENT ILLNESS: This 88-year-old male was admitted to Transitional Care Rehab at [facility] and examined at his bedside on 07/16/2018. The patient is being treated for TIA and comorbidities of left lower lung pneumonia and has comorbidities of stable atherosclerotic heart disease, history of renal transplant, insulin-dependent diabetes mellitus, hyperlipidemia, chronic hypertension, peripheral neuropathy, history of psychosis, hypothyroidism, degenerative arthritis, spinal arthritis and deconditioning. At present, the patient is mentally more alert. He has chronic permanent pacemaker that was checked by Dr. Enrique Mcpherson while on the cardiac unit and was cleared for discharge with normal pacemaker function. The patient denies any active chest pain or exertional shortness of breath and is showing improvement with pulmonary toiletry and IV antibiotics for newly noted left lower lung pneumonia. CURRENT MEDICATIONS: Include Ecotrin, Flonase, Myfortic, Humalog low-dose insulin coverage, Humalog Mix 75/25, Lipitor, Lopressor, Neurontin, Prograf, Risperdal, IV Rocephin, Synthroid, Ultracet p.r.n., Xopenex and Zyloprim. ALLERGIES: THE PATIENT HAS NO KNOWN ALLERGIES TO MEDICATION. 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 FAMILY HISTORY: Noncontributory. REVIEW OF SYSTEMS: On constitutional review: He denied fever or chills. Head: Has no active headache. Eyes: No change in visual acuity. Ears: No hearing loss. Throat: No swallowing difficulty. Neck: No stiffness. Cardiac: Permanent pacemaker placement and stable atherosclerotic heart disease, chronic hypertension. Pulmonary: Newly noted left lower lung pneumonia. GI: Asymptomatic gallstones, history of renal transplant. : Denies dysuria. Neurologic: Recent TIA. Vascular: No claudication. Endocrinological: Insulin-dependent diabetes mellitus and hyperlipidemia. Skin: No rash. PHYSICAL EXAMINATION: VITAL SIGNS: Temperature 97.8, respirations 20, pulse 66, blood pressure 141/72. Pulse ox 100% room air. HEAD: Normocephalic, atraumatic. EYES: No icterus. EARS: Clear. THROAT: Noninjected. NECK: Supple. HEART: Regular S1, S2. LUNGS: With rhonchi at the left base. ABDOMEN: Soft. No rebound, no guarding. No tenderness. No CVA tenderness. EXTREMITIES: No clubbing, no cyanosis, no edema. VASCULAR: Legs warm to touch. PSYCHOLOGICAL: Alert and oriented x3. Fluent speech. NEUROLOGICAL: Alert and oriented x3. Fluent speech. SKIN: With no ulcer and no rash. LABORATORY DATA: Random blood sugar 307. IMPRESSION: An 88-year-old male status post transient ischemic attack, now with improving neurological status and recent workup showing an unremarkable bubble studied echo, CT of the head with no obvious stroke or hemorrhage and abdominal ultrasound showing fatty liver and asymptomatic gallstones in a gentleman with permanent pacemaker placement and comorbidities as listed above. PLAN: To continue Ecotrin, Flonase, Myfortic, Humalog, Humalog 75/25, Lipitor, Lopressor, Neurontin, Prograf, Risperdal, IV Rocephin, Synthroid, p.r.n. Ultracet, Xopenex inhalational and Zyloprim. He will have his insulin adjusted today because of his improved p.o. intake and hyperglycemia and his Humalog mix 75/25 will be increased to 50 units subcu before meals breakfast and dinner while continuing Humalog low insulin coverage protocol before meals and at bedtime. I will order repeat basic metabolic panel and CBC in a.m. The patient is scheduled for a repeat swallow eval for completeness sake. He is ordered to have nasal O2 p.r.n., a diabetic heart-healthy diet and physical therapy for reconditioning and gait training. Greater than 35 minutes was spent in the care management, review of labs, orders and x-rays and outlining of medication for this patient today as well as discussion of his case with his nurse, Francoise Akhtar, registered nurse. All questions were answered. Arlette Woods MD
[2018-07-17] MEDS: Insulin Lispro (humaLOG) MIX 75/25(10 ml) SC SCH ×2 (07:49→17:18)
[2018-07-17] MEDS: MYFORTIC PO SCH (09:53)
[2018-07-17] MEDS: Fluticasone Nasal 50 mcg/Spray NS SCH (09:53)
--- NOTE | 2018-07-17 17:57 | PN ---
DATE: 07/17/2018 SUBJECTIVE: This 88-year-old male was examined at bedside. This case was reviewed in detail with nurse, Oriana Staley, registered nurse. The patient remains weak and deconditioned, but is cooperating with physical and occupational therapy for reconditioning status post TIA with right and left upper extremity motor weakness. PHYSICAL EXAMINATION: VITAL SIGNS: Temperature is 98.3, respirations 18, pulse 64, and blood pressure 152/79. Pulse ox 97% on room air. HEENT: Head: Normocephalic, atraumatic. Eyes: No icterus. Ears: Clear. Throat: Noninjected. NECK: Supple. HEART: S1, S2. LUNGS: Clear. ABDOMEN: Soft. EXTREMITIES: No edema. SKIN: Without rash. NEUROLOGIC: Deconditioned. VASCULAR: Legs warm to touch. PSYCHOLOGIC: Alert and oriented x3. LABORATORY DATA: White count 7900, hemoglobin 13, hematocrit 40.3, platelets 182,000. Sodium 139, K 4.1, chloride 107, bicarb 24. BUN 13, creatinine 0.8. Random blood sugar 133. PSA 0.9. Calcium 9.7. IMPRESSION: An 88-year-old male with left lower lung pneumonia, recent transient ischemic attack, and comorbidities of insulin-dependent diabetes mellitus, hyperlipidemia, hypertension, history of psychosis, peripheral neuropathy, history of kidney transplant, hypothyroidism, degenerative arthritis, spinal arthritis, and gout. PLAN: Continue Ecotrin, Flonase, Myfortic, Humulin insulin, Humalog 75/35 insulin, Lipitor, Lopressor, Neurontin, Prograf, Risperdal, Rocephin, Synthroid, Ultracet, Xopenex, and Zyloprim. The patient is receiving physical and occupational therapy daily for reconditioning and gait stability. Continues on nasal O2 p.r.n., heart-healthy renal diabetic diet, insulin coverage, and ultimate plan will be for discharge to home when medically stable. All of the above was reviewed with the patient and Nursing. All questions were answered. Arlette Woods MD DAGOBERTO
--- NOTE | 2018-07-18 04:28 | CON ---
DATE: 07/17/2018 SUBJECTIVE: The patient is 88-year-old male with multiple medical issues including hypertension, diabetes, pacemaker, kidney transplant in 2008. The patient was brought for evaluation of weakness, facial weakness and drooping, dilated pupils. The patient's family was concerned about the patient's safety and called EMS. The patient was admitted on the medical site, was transferred to the Transitional Care Unit. This advertising copy writer was involved into the patient because the patient was on Risperdal and nobody knew when it was started and by whom. This advertising copy writer reviewed the previous history. The patient has never been admitted to the psychiatric inpatient unit in the past, at least here in [facility]. No previous record is available. The patient was seen and examined today. The patient presented to be alert, comfortable. The patient reported that he fills medication in the [facility]. The patient reported that he does not feel depressed. Denied any thoughts of harming himself or others, but is not aware who prescribed Risperdal for him. The patient reported that he had history of hearing voices all the time, and this advertising copy writer had suggestion that the patient is to continue on current medications. Labs reviewed, seems to be stable. Chemistry seems to be stable. MENTAL STATUS EXAMINATION: The patient presented to be alert and oriented, pleasant, cooperative, at the same time, the patient seems to be a poor historian in regard of the history of medications and previous admissions. The patient denied any history of being admitted to the psychiatric inpatient unit. Mood described as okay. Affect was flat. Thought process concrete. Thought content, the patient denied thoughts of harming himself or others. Denied intent or plan, reported history of hearing voices. Insight and judgment seem to be improving. Impulses are well controlled. IMPRESSION: Most likely, the patient has mood spectrum disorder or psychotic spectrum disorder or a mood disorder due to general medical condition. PLAN: Continue current management. Continue current medications. pt was advised to take meds as prescribed, pt was advised to follow with hs PMD and specialists. Meanwhile, continue all medications, pt seems not in any danger to self or others, please reconsult as needed. Thank you very much for letting me participate in care of your patient. Cate Arzola MD [facility] # [id number] DAGOBERTO
[2018-07-18] MEDS: Levothyroxine 112 MCG TAB PO SCH (06:03)
[2018-07-18] MEDS: cefTRIAXone 1 gm 1 GM/100 ML BAG IVPB SCH (06:03)
[2018-07-18] MEDS: Levalbuterol 0.63 MG/3 ML Inhal Soln UD IH SCH ×3 (07:10→19:37)
[2018-07-18] MEDS: Insulin Lispro (humaLOG) LOW Coverage SC SCH ×4 (07:22→22:11)
[2018-07-18] MEDS: Insulin Lispro (humaLOG) MIX 75/25(10 ml) SC SCH ×2 (07:59→17:23)
[2018-07-18] MEDS: Fluticasone Nasal 50 mcg/Spray NS SCH (09:53)
[2018-07-18] MEDS: MYFORTIC PO SCH (09:53)
--- NOTE | 2018-07-18 11:02 | CP.PCM.PN ---
Subjective - Date & Time of Evaluation Date of Evaluation: 07/18/18 Time of Evaluation: 11:02 - Subjective Subjective: Carlie Vela DO, PGY-2: Progress Note for Dr. Guevara (covering for Dr. Woods) Patient was seen and examined at bedside and during physical therapy. Patient reports good appetite. He denies fever, chills, nausea, vomiting, or changes in urinary frequency. We re-started his Mycophenolate Mofetil and his Prednisone 5 mg every other day. Objective - Vital Signs/Intake and Output Vital Signs (last 24 hours): Temp Pulse Resp BP Pulse Ox 97.7 F 62 18 137/93 H 98 07/18/18 06:00 07/18/18 06:00 07/18/18 06:00 07/18/18 06:00 07/18/18 06:00 - Medications Medications: Current Medications Allopurinol (Zyloprim) 100 mg PO DAILY [facility]; Protocol Last Admin: 07/18/18 09:54 Dose: 100 mg Aspirin (Aspirin Chewable) 81 mg PO 0800 [facility]; Protocol Last Admin: 07/18/18 08:00 Dose: 81 mg Atorvastatin Calcium (Lipitor) 40 mg PO DIN [facility]; Protocol Last Admin: 07/17/18 17:19 Dose: 40 mg Fluticasone Propionate (Flonase) 1 actuation NS DAILY [facility]; Protocol Last Admin: 07/18/18 09:53 Dose: 1 spr Gabapentin (Neurontin) 400 mg PO BID [facility]; Protocol Last Admin: 07/18/18 09:53 Dose: 400 mg Home Med (Home Med) 1 unit PO DAILY [facility] Last Admin: 07/18/18 09:53 Dose: Not Given Ceftriaxone Sodium (Rocephin 1 Gram Ivpb) 1 gm in 100 mls @ 100 mls/hr IVPB 0600 [facility]; Protocol Stop: 07/20/18 06:59 Last Admin: 07/18/18 06:03 Dose: 100 mls/hr Insulin Human Lispro (Humalog Low) 0 units SC ACHS [facility]; Protocol Last Admin: 07/18/18 07:22 Dose: Not Given Insulin Lispro Protam/Lispro Human (Humalog Mix 75/25) 50 units SC ACBD [facility]; Protocol Last Admin: 07/18/18 07:59 Dose: 50 units Levalbuterol HCl (Xopenex) 0.63 mg IH TIDRESP [facility]; Protocol Last Admin: 07/18/18 07:10 Dose: 0.63 mg Levothyroxine Sodium (Synthroid) 112 mcg PO 0600 [facility]; Protocol Last Admin: 07/18/18 06:03 Dose: 112 mcg Metoprolol Tartrate (Lopressor) 5 mg IVP Q6H PRN PRN Reason: Systolic Blood Pressure Risperidone (Risperdal Tab) 1 mg PO HS [facility]; Protocol Last Admin: 07/17/18 21:48 Dose: 1 mg Tacrolimus (Prograf Cap) 4 mg PO Q12 [facility]; Protocol Last Admin: 07/18/18 09:54 Dose: 4 mg Tramadol/Acetaminophen (Ultracet 37.5/325 Mg) 1 tab PO Q8H PRN; Protocol PRN Reason: Pain, moderate (4-7) Last Admin: 07/17/18 20:20 Dose: 1 tab - Labs Labs: 07/17/18 05:45 07/17/18 05:20 - Constitutional Appears: Well, Non-toxic - Head Exam Head Exam: ATRAUMATIC, NORMOCEPHALIC - Eye Exam Eye Exam: EOMI, Normal appearance - ENT Exam ENT Exam: Mucous Membranes Moist - Neck Exam Neck Exam: Normal Inspection - Respiratory Exam Respiratory Exam: Clear to Ausculation Bilateral, NORMAL BREATHING PATTERN. absent: Accessory Muscle Use, Rales - Cardiovascular Exam Cardiovascular Exam: RRR, +S1, +S2 - GI/Abdominal Exam GI & Abdominal Exam: Soft, Normal Bowel Sounds - Extremities Exam Extremities Exam: Normal Inspection. absent: Calf Tenderness Additional comments: Closed AVF on left forearm - Neurological Exam Neurological Exam: Alert, Awake, Oriented x3 - Psychiatric Exam Psychiatric exam: Normal Affect, Normal Mood - Skin Skin Exam: Dry, Intact, Normal Color, Warm Assessment and Plan (1) Renal transplant, status post Assessment & Plan: Continue with tacrolimus Restarted Mycophenolate Mofetil 500 mg PO BID Restarted Prednisone 5 mg PO every other day. Status: Acute (2) Bronchitis Assessment & Plan: Continue with Rocephin for a total of 5 days. Status: Acute (3) Hypothyroidism Assessment & Plan: Continue with Levothyroxine 112 mcg daily Status: Acute (4) TIA (transient ischemic attack) Assessment & Plan: Continue aspirin 81 mg PO daily Continue atorvastatin daily Status: Acute (5) Gout Assessment & Plan: Continue with Allopurinol 100 mg daily Status: Acute - Assessment and Plan (Free Text) Plan: Case was reviewed and discussed with attending physician, Dr. Guevara (who is covering for Dr. Woods)
--- NOTE | 2018-07-18 15:08 | PCM.EEG ---
Electroencephalogram Report - Electroencephalogram Report Procedure Date: 07/14/18 Condition of Recording: Awake, Drowsy Medication: ASA, Gabapentin, Cefrtiaxone, Prednisone. Interpretation: Technical Information: This was a 16 -channel EEG, 1-channel EKG routine EEG performed using an [employer] machine. Electrodes were applied using the 10/20 international placement system. FINDINGS During active states, the EEG contained symmetric 10-20 Hz,20-30 uV activity seen bi-frontally. . During resting wakefulness there was a symmetric posterior dominant rhythm at 8.5-9.5 Hz, 30-50 uV, which was reactive to eye opening and closing. Drowsiness was associated with fragmentation of the posterior dominant rhythm and with slow roving eye movements. Hyperventilation was not performed. Photic stimulation was performed and there were no changes on the record. Focal abnormality; none ECG showed occasional PVcs. Impression: This is a normal awake and drowsy electroencephalogram.
[2018-07-19] MEDS: Cefpodoxime (Vantin) 200 mg Tab PO SCH ×2 (05:32→17:29)
[2018-07-19] MEDS: Levothyroxine 112 MCG TAB PO SCH (05:32)
[2018-07-19] MEDS: Insulin Lispro (humaLOG) LOW Coverage SC SCH ×4 (06:44→23:35)
[2018-07-19] MEDS: Levalbuterol 0.63 MG/3 ML Inhal Soln UD IH SCH ×3 (07:07→21:10)
[2018-07-19] MEDS: Insulin Lispro (humaLOG) MIX 75/25(10 ml) SC SCH ×2 (07:54→17:27)
[2018-07-19] MEDS: Fluticasone Nasal 50 mcg/Spray NS SCH (09:13)
[2018-07-19] MEDS: MYFORTIC PO SCH (09:50)
--- NOTE | 2018-07-19 22:45 | CP.PCM.PN ---
Subjective - Date & Time of Evaluation Date of Evaluation: 07/19/18 Time of Evaluation: 12:00 - Subjective Subjective: Providing coverage for Dr. Woods: 88 yo M w/ pmh of htn, dm, CAD, arthritis, and s/p renal transplant, admitted initially to [facility] with TIA and L lung PNA, now in TCU due to deconditioning; Reports feeling well; tolerating PT though leg weakness not completely resolved (L > R); tolerating diet well; no issues urinating; Objective - Vital Signs/Intake and Output Vital Signs (last 24 hours): Temp Pulse Resp BP Pulse Ox 98.4 F 76 16 145/78 94 L 07/19/18 22:00 07/19/18 22:00 07/19/18 22:00 07/19/18 22:00 07/19/18 22:00 - Medications Medications: Current Medications Allopurinol (Zyloprim) 100 mg PO DAILY [facility]; Protocol Last Admin: 07/19/18 09:14 Dose: 100 mg Aspirin (Aspirin Chewable) 81 mg PO 0800 [facility]; Protocol Last Admin: 07/19/18 07:56 Dose: 81 mg Atorvastatin Calcium (Lipitor) 40 mg PO DIN [facility]; Protocol Last Admin: 07/19/18 17:29 Dose: 40 mg Cefpodoxime Proxetil (Vantin) 200 mg PO 0600,1800 [facility] Stop: 07/20/18 06:01 Last Admin: 07/19/18 17:29 Dose: 200 mg Fluticasone Propionate (Flonase) 1 actuation NS DAILY [facility]; Protocol Last Admin: 07/19/18 09:13 Dose: 1 spr Gabapentin (Neurontin) 400 mg PO BID [facility]; Protocol Last Admin: 07/19/18 17:29 Dose: 400 mg Home Med (Home Med) 1 unit PO DAILY [facility] Last Admin: 07/19/18 09:50 Dose: Not Given Insulin Human Lispro (Humalog Low) 0 units SC ACHS [facility]; Protocol Last Admin: 07/19/18 16:44 Dose: Not Given Insulin Lispro Protam/Lispro Human (Humalog Mix 75/25) 50 units SC ACBD [facility]; Protocol Last Admin: 07/19/18 17:27 Dose: 50 units Levalbuterol HCl (Xopenex) 0.63 mg IH TIDRESP [facility]; Protocol Last Admin: 07/19/18 21:10 Dose: 0.63 mg Levothyroxine Sodium (Synthroid) 112 mcg PO 0600 [facility]; Protocol Last Admin: 07/19/18 05:32 Dose: 112 mcg Metoprolol Tartrate (Lopressor) 5 mg IVP Q6H PRN PRN Reason: Systolic Blood Pressure Mycophenolate Mofetil (Cellcept Cap) 500 mg PO BID [facility] Last Admin: 07/19/18 17:28 Dose: 500 mg Prednisone (Prednisone Tab) 5 mg PO Q48H [facility] Last Admin: 07/18/18 13:35 Dose: 5 mg Risperidone (Risperdal Tab) 1 mg PO HS [facility]; Protocol Last Admin: 07/19/18 21:45 Dose: 1 mg Tacrolimus (Prograf Cap) 4 mg PO Q12 [facility]; Protocol Last Admin: 07/19/18 21:44 Dose: 4 mg Tramadol/Acetaminophen (Ultracet 37.5/325 Mg) 1 tab PO Q8H PRN; Protocol PRN Reason: Pain, moderate (4-7) Last Admin: 07/17/18 20:20 Dose: 1 tab - Labs Labs: 07/17/18 05:45 07/17/18 05:20 - Constitutional Appears: Well, No Acute Distress - Eye Exam Eye Exam: Normal appearance - ENT Exam ENT Exam: Mucous Membranes Moist - Respiratory Exam Respiratory Exam: Clear to Ausculation Bilateral. absent: Respiratory Distress - Cardiovascular Exam Cardiovascular Exam: RRR, +S1, +S2 - GI/Abdominal Exam GI & Abdominal Exam: Soft. absent: Distended, Tenderness - Extremities Exam Additional comments: no leg edema; - Neurological Exam Neurological Exam: Alert, Awake - Psychiatric Exam Psychiatric exam: Normal Mood. absent: Agitated - Skin Skin Exam: Warm. absent: Cyanosis Assessment and Plan (1) Renal transplant, status post Assessment & Plan: Excellent allograft function; placed back on all his outpatient transplant meds (using cellcept instead of myfortic while here); continue same; Status: Chronic (2) HTN (hypertension) Assessment & Plan: Was on amlodipine-benazepril combo at home; BP mildly elevated; will restart amlodipine 5 mg; Status: Chronic (3) Diabetes Assessment & Plan: Post-prandial sugars not yet at goal; continue current insulin regimen (75-25 novolog 50 u bid) with coverage; Status: Chronic (4) Gout Assessment & Plan: asymptomatic, continue allopurinol; Status: Chronic (5) Hypothyroidism Assessment & Plan: continue levothyroxine; Status: Chronic
[2018-07-20] MEDS: Cefpodoxime (Vantin) 200 mg Tab PO SCH (05:55)
[2018-07-20] MEDS: TraMADol/Apap 37.5/325 mg Tab PO PRN (05:55)
[2018-07-20] MEDS: Levothyroxine 112 MCG TAB PO SCH (05:55)
[2018-07-20] MEDS: Insulin Lispro (humaLOG) LOW Coverage SC SCH ×4 (06:32→22:13)
[2018-07-20] MEDS: Insulin Lispro (humaLOG) MIX 75/25(10 ml) SC SCH ×2 (06:34→17:12)
[2018-07-20] MEDS: Levalbuterol 0.63 MG/3 ML Inhal Soln UD IH SCH ×3 (07:17→20:06)
[2018-07-20] MEDS: Fluticasone Nasal 50 mcg/Spray NS SCH (09:04)
[2018-07-20] MEDS: MYFORTIC PO SCH (09:04)
[2018-07-21] MEDS: Levothyroxine 112 MCG TAB PO SCH (05:46)
[2018-07-21] MEDS: Insulin Lispro (humaLOG) LOW Coverage SC SCH ×4 (06:35→22:12)
[2018-07-21] MEDS: Insulin Lispro (humaLOG) MIX 75/25(10 ml) SC SCH ×2 (06:37→17:01)
[2018-07-21] MEDS: Levalbuterol 0.63 MG/3 ML Inhal Soln UD IH SCH ×3 (07:10→21:18)
[2018-07-21] MEDS: Fluticasone Nasal 50 mcg/Spray NS SCH (10:35)
[2018-07-21] MEDS: MYFORTIC PO SCH (10:36)
[2018-07-22] MEDS: Levothyroxine 112 MCG TAB PO SCH (05:44)
[2018-07-22] MEDS: Insulin Lispro (humaLOG) LOW Coverage SC SCH ×4 (06:38→21:53)
[2018-07-22] MEDS: Levalbuterol 0.63 MG/3 ML Inhal Soln UD IH SCH ×3 (07:01→20:51)
[2018-07-22] MEDS: Insulin Lispro (humaLOG) MIX 75/25(10 ml) SC SCH ×2 (07:56→17:25)
--- NOTE | 2018-07-22 09:16 | PN ---
DATE: 07/21/2018 SUBJECTIVE: This 88-year-old male was examined at his bedside and this case was reviewed with his nurse, Beatrice Norman, registered nurse. The patient is out of bed to chair, wearing nasal O2. Denies any fever, chills, chest pain or shortness of breath. PHYSICAL EXAMINATION: VITAL SIGNS: Temperature 98.3, respirations 20, pulse 64 and blood pressure 135/81 with a pulse ox of 97% on room air. HEENT: Head: Normocephalic, atraumatic. Eyes: No icterus. Ears: Clear. Throat: Noninjected. NECK: Supple. HEART: Regular S1, S2. LUNGS: With rhonchi at left base. ABDOMEN: Soft. EXTREMITIES: No edema. SKIN: Without rash. NEUROLOGICAL: Intact. PSYCHOLOGICAL: Alert. VASCULAR: Legs warm to touch. LABORATORY DATA: Random blood sugar 218. White count 7900, hemoglobin 13, hematocrit 40.3, platelets 182,000. IMPRESSION: An 88-year-old male admitted with transient ischemic attack and comorbidities of left lower lung pneumonia, chronic hypertension, renal transplant, now with obstipation, history of benign prostate hypertrophy, sinusitis, insulin-dependent diabetes mellitus, hyperlipidemia, peripheral neuropathy, psychosis, hypothyroidism, degenerative arthritis and gout. As discussed with nurse Emerson, he will continue on Ecotrin, clonidine, CellCept. A dose of Enulose 30 g p.o. has been ordered stat and p.o. daily p.r.n. obstipation. He continues on Flonase, Myfortic, Humalog, insulins, Lipitor, Neurontin, Norvasc and prednisone, Prograf, Risperdal, Synthroid, Ultracet, Xopenex, Zestril and Zyloprim. He will be scheduled to have a repeat chest x-ray in the a.m. He continues on physical therapy and based on clinical progress, discharge disposition timing will be entertained. Greater than 30 minutes was spent in the care and management, review of labs, orders and x-rays and discussion of this patient's case with nurse, Emerson, adjusting orders. All questions were answered. Arlette Woods MD [facility] # [id number] MTDD
--- NOTE | 2018-07-22 09:19 | PN ---
DATE: 07/20/2018 SUBJECTIVE: This 88-year-old male was examined at his bedside on the afternoon of 07/20/2018. His case was reviewed with his nurse, Oriana Staley, registered nurse. The patient is out of bed to chair. He is cooperating with nursing and physical therapy. He is tolerating pulmonary toiletry and parenteral antibiotics for left lower lobe pneumonia. PHYSICAL EXAMINATION VITAL SIGNS: Temperature was 97.3, respirations 16, pulse 68, blood pressure 132/77 with a pulse ox of 94%. HEENT: Head: Normocephalic, atraumatic. Eyes: No icterus. Ears: Clear. Throat: Noninjected. NECK: Supple. HEART: Regular S1 and S2. LUNGS: Rhonchi at the left base. ABDOMEN: Soft. EXTREMITIES: No edema. SKIN: Without rash. NEUROLOGICAL: Intact. PSYCHOLOGICAL: Alert. VASCULAR: Legs warm to touch. LABORATORY DATA: Random blood sugar 126. IMPRESSION: An 88-year-old male admitted with transient ischemic attack, left lower lobe pneumonia and comorbidities of chronic hypertension, renal transplant, insulin-dependent diabetes mellitus, hyperlipidemia, peripheral neuropathy, history of psychosis, hypothyroidism, degenerative arthritis and gout. PLAN: The plan at present is to continue Ecotrin, clonidine, CellCept, Enulose, Flonase, Myfortic, Humalog, low-dose insulin coverage before meals and at bedtime, Humalog mix 75/25, scheduled insulin, Lipitor, Neurontin, Norvasc, prednisone, Prograf, Risperdal, Synthroid, Ultracet, Xopenex, Zestril and Zyloprim. The patient continues on physical therapy for reconditioning and gait training. He is ordered to have nasal O2 p.r.n. and a diabetic heart-healthy diet. He will continue physical and occupational therapy. A repeat chest x-ray will be ordered within the next 24-48 hours and based on clinical progress, discharge disposition planning will be entertained. Greater than 30 minutes was spent in evaluation, review of medications, labs and discussion of this patient with nursing and all questions were answered. Arlette Woods MD [facility] # [id number] DAGOBERTO
[2018-07-22] MEDS: Fluticasone Nasal 50 mcg/Spray NS SCH (09:47)
[2018-07-22] MEDS: MYFORTIC PO SCH (09:47)
--- NOTE | 2018-07-22 10:06 | RAD ---
Date of service: 07/22/2018 HISTORY: r/o pneumonia COMPARISON: Portable chest 07/12/2018. TECHNIQUE: Chest PA and lateral FINDINGS: LUNGS: Linear atelectasis is appreciate the right base, borderline at the left. No alveolitis bilaterally. PLEURA: No significant pleural effusion identified. No pneumothorax apparent. CARDIOVASCULAR: Stable cardiomediastinal silhouette. No pulmonary vascular congestion. Bipolar permanent cardiac pacemaker unchanged in appearance. OSSEOUS STRUCTURES: No significant abnormalities. VISUALIZED UPPER ABDOMEN: Normal. OTHER FINDINGS: None. IMPRESSION: Limited linear atelectasis bilateral bases, right greater than left with exam otherwise unchanged in the interval. Stable cardiomegaly. No pulmonary vascular congestion.
[2018-07-23] MEDS: Levothyroxine 112 MCG TAB PO SCH (05:54)
[2018-07-23] MEDS: Insulin Lispro (humaLOG) MIX 75/25(10 ml) SC SCH ×2 (06:33→07:58)
[2018-07-23] MEDS: Insulin Lispro (humaLOG) LOW Coverage SC SCH ×2 (06:33→11:35)
[2018-07-23] MEDS: Levalbuterol 0.63 MG/3 ML Inhal Soln UD IH SCH ×2 (07:19→13:06)
[2018-07-23] MEDS: Fluticasone Nasal 50 mcg/Spray NS SCH (09:45)
[2018-07-23] MEDS: MYFORTIC PO SCH (10:05)
[2018-07-23 11:04] VITALS: BP 155/81; PULSE 70; O2SAT 97
[2018-07-23 11:46] VITALS: RESP 18; TEMP 97.4
--- NOTE | 2018-07-23 12:41 | PN ---
DATE: 07/22/2018 SUBJECTIVE: This 88-year-old male was examined at his bedside in the presence of nurse, Beatrice Norman, registered nurse. The patient is receiving daily physical therapy which was reviewed with his physical therapist, Justino Rodriguez Jr. The patient has successfully completed physical therapy. He is safe for ambulation, transfer safety as well as staircase safety. I have ordered a repeat chest x-ray this morning to better assess his left lower lobe pneumonia. The results of which are pending. PHYSICAL EXAMINATION: VITAL SIGNS: His temperature was 98.1, respirations 18, pulse 61 and blood pressure 138/73 with a pulse ox of 96% on room air. HEAD: Normocephalic, atraumatic. EYES: No icterus. EARS: Clear. THROAT: Noninjected. NECK: Supple. HEART: Was regular S1, S2. LUNGS: Clear. ABDOMEN: Soft. EXTREMITIES: No edema. SKIN: Without rash. NEUROLOGICAL: Improvement in deconditioning. VASCULAR: Legs warm to touch. LABORATORY DATA: Random blood sugar 151. PSA 0.9. Sodium 139, K 4.1, chloride 107, bicarb 24, BUN 13, creatinine 0.8. IMPRESSION: An 88-year-old male with transient ischemic attack, resolved; left lower lobe pneumonia, improving; exacerbation of chronic obstructive pulmonary disease; chronic hypertension; history of renal transplant; insulin-dependent diabetes mellitus; hyperlipidemia; peripheral neuropathy; history of psychosis; hypothyroidism; degenerative arthritis and gout. PLAN: My plans are to review most recent chest x-ray in anticipation of discharge in a.m. He will continue on baby aspirin, clonidine, CellCept, Enulose, Flonase, Myfortic, Humalog insulin 75/25 Mix, Lipitor, Neurontin, Norvasc, prednisone taper, Prograf, Risperdal, Synthroid, Xopenex, Zestril and Zyloprim. If chest x-ray is clear and the patient has no fever on a.m. vital signs, he will be cleared for discharge to home. All of the above was reviewed with Physical Therapy, Nursing and the patient. All questions were answered. Arlette Woods MD [facility] # [id number] MTDD
--- NOTE | 2018-07-24 22:47 | DS ---
HISTORY OF PRESENT ILLNESS: This 88-year-old male was examined at his bedside on the morning of 07/23/2018. He is being readied for discharge. FINAL DIAGNOSES: Include left lung pneumonia, resolved; acute exacerbation of chronic obstructive pulmonary disease, improved; recent transient ischemic attack, resolved; renal transplant; hyperlipidemia; hypothyroidism; insulin-dependent diabetes mellitus; peripheral neuropathy; sinusitis; chronic hypertension; degenerative arthritis; gout; history of psychosis. DISPOSITION: Home. FOLLOWUP: In my office, 07/28/2018. DISCHARGE MEDICATIONS: Include Risperdal 1 mg p.o. at bedtime, Prograf 1 mg p.o. b.i.d., Zocor 40 mg p.o. daily, Myfortic 360 mg p.o. b.i.d., Synthroid 112 mcg p.o. daily, glaucoma eyedrops from home as labeled, Novolin 70/30 insulin 55 units a.c. breakfast and dinner, gabapentin 400 mg p.o. b.i.d., Flonase one spray nostrils daily, Ecotrin 81 mg p.o. daily, amlodipine-benazepril 2.5-10 p.o. daily, Zyloprim 100 mg p.o. daily. SUMMARY: This 88-year-old male who was admitted to the [facility] with TIA and left lower lung pneumonia, successfully completed a course of physical and occupational therapy rehab as well as IV antibiotics and pulmonary toiletry. The patient at the time of discharge had a temperature of 97.4, respirations 18, pulse 70 and blood pressure 155/81. He was fully ambulatory and successful in transfer safety, ambulation safety, and staircase safety as per his physical therapy team. LABORATORY DATA: Discharge labs showed white count 7900, hemoglobin 13, hematocrit 40.3, platelets 182,000. Random blood sugar at the time of discharge was 145, and his electrolytes showed sodium 139, K 4.1, chloride 107, bicarb 24, BUN 13, creatinine 0.8, calcium 9.7. PSA 0.9. A chest x-ray dated 07/22/2018 was reviewed. It showed linear atelectasis at the right base. There was no evidence of pneumonia, no significant pleural effusion and no pneumothorax apparent. No pulmonary vascular congestion was noted, and his bipolar permanent pacemaker remained unchanged in appearance. PLAN: The patient was cleared for discharge to home. All medications were reviewed and followup appointment was outlined. Greater than 35 minutes were spent in the care management, review of labs, orders and x-rays; a discussion of this patient with Social Service, Physical Therapy and nurse, Sanaz Jaime, registered nurse. All questions were answered. Arlette Woods MD
== END 2018-07-23 17:00 | disposition home or self-care (01) | DRG 69 ==
LOC: TRCU 17:02
PROVIDERS: ADMIT Internal Medicine; ATTEND Internal Medicine
PROC: F07Z9FZ Gait Training/Functional Ambulation Treatment using Assistive, Adaptive, Supportive or Protective Equipment (ICD-10-PCS; principal; 2018-07-16)
PROC: F07M6ZZ Therapeutic Exercise Treatment of Musculoskeletal System - Whole Body (ICD-10-PCS; 2018-07-16)
PROC: F08Z1ZZ Dressing Techniques Treatment (ICD-10-PCS; 2018-07-16)
PROC: F08Z2ZZ Grooming/Personal Hygiene Treatment (ICD-10-PCS; 2018-07-16)
PROC: F08Z0ZZ Bathing/Showering Techniques Treatment (ICD-10-PCS; 2018-07-16)
PROC: F08Z4ZZ Home Management Treatment (ICD-10-PCS; 2018-07-16)
DX: G45.9 Transient cerebral ischemic attack, unspecified (principal); J18.1 Lobar pneumonia, unspecified organism; Z94.0 Kidney transplant status; E03.9 Hypothyroidism, unspecified; E11.69 Type 2 diabetes mellitus with other specified complication; E78.5 Hyperlipidemia, unspecified; F06.30 Mood disorder due to known physiological condition, unspecified; H57.04 Mydriasis; I10 Essential (primary) hypertension; I25.10 Atherosclerotic heart disease of native coronary artery without angina pectoris; J40 Bronchitis, not specified as acute or chronic; K59.00 Constipation, unspecified; M10.9 Gout, unspecified; N40.0 Benign prostatic hyperplasia without lower urinary tract symptoms; Z79.4 Long term (current) use of insulin; Z79.82 Long term (current) use of aspirin; Z79.890 Hormone replacement therapy; E11.42 Type 2 diabetes mellitus with diabetic polyneuropathy; M46.90 Unspecified inflammatory spondylopathy, site unspecified; M19.90 Unspecified osteoarthritis, unspecified site